=== PATIENT | female | born 2000 | race African-American/Black ===

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

== ENCOUNTER 2018-02-16 13:12 | Day surgery (SDC) | payer OTHER ==
[2018-02-16 13:46] VITALS: BMI 38.7
--- NOTE | 2018-02-16 15:04 | PDOC.LDHP ---
Labor and Delivery H&P Chief complaint: contractions HPI: 17 yo G1 at 37.4 by 9.5 week US here with complaint of contractions since 0700 today. She denies associated loss of fluid, vaginal bleeding, or decreased movement. This has been complicated by seizure disorder treated with Depakote during the first trimester, multiple treatments for Gonorrhea/ Chlamydia, anemia requiring Fe transfusion, and GBS+ status. Pt is being followed by MFM monthly. Current gestational age (weeks): 37 (37.4) Due date: 03/05/18 Dating criteria: first trimester ultrasound Grav: 1 Current complications: pregestational diabetes (Failed 1hr GTT, passed 3 hr), other (seizure disorder treated with Depakote, anemia, GC/C) Abnormal US findings: No Current medications: pre-jennifer vitamins, iron - Physical Exam Vital signs reviewed and normal: yes General: NAD Heart: RRR (with systolic murmur) Lungs: CTAB Abdomen: gravid Extremeties: trace edema FHT: category 1, variability present, absent or minimal variables [place] contractions every: 6-8 - Vaginal Exam cm dilated: 1 (per history, pt refused exam today) - OB Labs Blood type: B RH: positive Antibody Screen: negative HIV: negative RPR: negative HEPSAg: negative 1 hour GCT: positive 3 hour GTT: negative GBS: positive Urine drug screen: negative Rubella: immune - Assessment Term , not in active labor - Plan Plan: observation in L&D <Lyndon Jones - Last Filed: 02/16/18 15:29> <Bethany Aguilar - Last Filed: 02/16/18 17:19> Allergies/Adverse Reactions: Allergies Allergy/AdvReac Type Severity Reaction Status Date / Time No Known Allergies Allergy Verified 02/16/18 13:46 Attending Addendum - Attending Addendum Date/Time: 02/16/18 4867 I personally evaluated the patient and discussed the management with Dr. Jones I agree with the History, Examination, Assessment and Plan documented above with any addition or exceptions noted below. 17 yo at 37.4 wks presents for evaluation of labor. Patient sitting comfortably in bed with nonpainful intermittent contractions. Refusing vaginal exam. FHT reactive. Will monitor for 2 hours. Will attempt to repeat exam prior to d/c. Obtain LAMONTE Gc/CT of urine. Yassine <Bethany Aguilar - Last Filed: 02/16/18 17:19>
--- NOTE | 2018-02-16 15:33 | PDOC.LDPN ---
Labor & Delivery Progress Note - Subjective Subjective: comfortable - Objective Vital signs reviewed and normal: yes General: NAD Uterine fundus: non tender FHT: category 1 - Assessment (1) Third trimester Code(s): Z34.93 - ENCNTR FOR SUPRVSN OF NORMAL PREG, UNSP, THIRD TRIMESTER Status: Acute Comment: Pt has refused cervical exam, there are contractions on her strip however I am unable to determine if they are making change. Pt is requesting to be discharged (2) History of maternal gonorrhea, currently in third trimester Code(s): O09.893 - SUPERVISION OF OTHER HIGH RISK PREGNANCIES, THIRD TRIMESTER Status: Acute Comment: There is not LAMONTE on file, will order GC/C today <Lyndon Jones - Last Filed: 02/16/18 15:31> Attending Addendum - Attending Addendum Date/Time: 02/16/18 1720 I personally evaluated the patient and discussed the management with Dr. Jones I agree with the History, Examination, Assessment and Plan documented above with any addition or exceptions noted below. Refused 2nd vaginal exam. No change on pain or frequency of contractions. Remains pain free and comfortable. Ok for d/c to home. Precautions discussed. Has appointment with PCP later this week. Ct/GC collected and pending. Yassine <Bethany Aguilar - Last Filed: 02/16/18 17:22>
[2018-02-17] MEDS ORDERED: FLU VACC QS2017-18 36 mo. & older 0.5 ML SYRINGE IM ONE (09:00)
[2018-02-18 01:27] LABS: Chlamydia by PCR Not Detected (NotDetected); GC by PCR Not Detected (NotDetected)
== END 2018-02-16 15:25 | disposition home or self-care (01) ==
LOC: L&D/OP 13:12
PROVIDERS: ATTEND Family Medicine
DX: O47.1 False labor at or after 37 completed weeks of gestation (principal); O99.353 Diseases of the nervous system complicating pregnancy, third trimester; G40.909 Epilepsy, unspecified, not intractable, without status epilepticus; O24.313 Unspecified pre-existing diabetes mellitus in pregnancy, third trimester; O99.013 Anemia complicating pregnancy, third trimester; D64.9 Anemia, unspecified; Z3A.37 37 weeks gestation of pregnancy; Z79.899 Other long term (current) drug therapy
CPT/HCPCS: 87491; 87591; 99282

== ENCOUNTER 2018-02-20 03:42 | Inpatient (IN) | payer MEDICAID, OTHER ==
[2018-02-20 04:32] VITALS: BMI 36.3
--- NOTE | 2018-02-20 04:44 | PDOC.LDHP ---
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 She denies vaginal bleeding and decreased movement. Current gestational age (weeks): 38 (38.1) Due date: 03/05/17 Dating criteria: first trimester ultrasound (9.5) Grav: 1 Para: 0 OB History Details: Anemia of requiring iron transfusion Hx of 3 positive tests for chlamydia, with most recent LAMONTE on 02/16/2018 Hx of positive gonorrhea test, with LAMONTE 08/2018 Hx of seizure disorder on depakote in first trimester Prediabetes (hba1c 6.0) Current complications: other Abnormal US findings: No Past Medical History: Seizure d/o; pt was weaned off of depakote in first trimester Prediabetes Current medications: pre- vitamins, iron, other (folic acid) Previous surgical history: none Allergies/Adverse Reactions: Allergies Allergy/AdvReac Type Severity Reaction Status Date / Time No Known Allergies Allergy Verified 02/16/18 13:46 Social history: none - Physical Exam Vital signs reviewed and normal: yes General: NAD, breathing through contractions Heart: RRR Lungs: CTAB Abdomen: gravid Extremeties: no edema FHT: category 1 - Vaginal Exam cm dilated: 3 Effacement: 100% Station: -2 - OB Labs Blood type: B RH: positive Antibody Screen: negative HIV: negative RPR: negative HEPSAg: negative 3 hour GTT: negative GBS: positive Rubella: immune - Assessment L&D Assessment: term patient in labor 7 yo at 38.1 wks by 9.5 week US presents with contractions and loss of fluid since 0100. 1.)sIUP, Latent Labor with suspected SROM- we will admit to L&D. Order an amnisure. She desires an epidural. We will do serial labor checks every 2 hours to evaluate for change and provide continuous monitoring. We will order a cbc, type and screen. 2.)Possible new onset gestational hypertension-Pt has had 3 elevated blood pressures each about 15 minutes apart. However, she is in a lot of pain from her contractions. Nevertheless, we will evaluate her for PreEclampsia. We ordered a cbc, cmp, urine protein and creatinine, uric acid. 3.)GBS positive- we started her on PCN. 4.)Hx of seizures-She used to be on depakote for prophylaxis, which was weaned off in her first trimester. We will continue her on folate. 5.)Anemia of -she received an iron infusion in . We will monitor her H&H and continue PO iron. 6.)Hx of chlamydia infection X3 in s/p treatment each time- most recent LAMONTE on 02/16. We ordered a UA with gonorrhea and chlamydia testing. 7.)Hx of gonorrhea infection, s/p treatment and test of cure. We ordered a urine gonorrhea. - Plan Plan: admit to L&D
[2018-02-20 05:37] LABS: Amnisure Test RUPTURE DETECTED (No Rupture)
[2018-02-20 05:38] LABS: Amnisure Internal Control QC ACCEPTABLE (ACCEPTABLE)
[2018-02-20] MEDS ORDERED: Promethazine HCl 25 MG/ML VIAL IM PRN ×2 (05:53→11:20)
[2018-02-20] MEDS ORDERED: Ondansetron HCl/PF 4 MG/2 ML Vial IVP PRN ×3 (05:53→11:20)
[2018-02-20] MEDS: Lactated Ringer's 1,000 ML IV SCH ×3 (05:58→14:27)
[2018-02-20] MEDS ORDERED: LR / Pitocin 40 units/1000 ml 1,000 ML IV PRN (06:03)
[2018-02-20] MEDS ORDERED: Lidocaine 1% (PF) 30 ML VIAL SC PRN (06:03)
[2018-02-20] MEDS ORDERED: Ibuprofen 800 MG TAB PO PRN (06:03)
[2018-02-20] MEDS ORDERED: Penicillin G Potassium 5 MILL.UNITS in Sodium Chloride 0.9% 100 ML IVPB SCH (06:15)
[2018-02-20] MEDS ORDERED: DISCONTINUE ALL PREVIOUS NARCOTICS FS SCH (06:15)
[2018-02-20] MEDS ORDERED: Bupivacaine 0.5% 20 ML, Fentanyl 400 MCG in Sodium Chloride 0.9% 72 ML EPIDURAL SCH (06:15)
[2018-02-20 06:16] LABS: #Basophils 0.1 thou/uL (0.0-0.2); #Monocytes 0.5 thou/uL (0.11-0.59); #Neutrophils 7.5 thou/uL (1.40-6.50); %Basophils 0.6 % (0.0-1.0); %Eosinophils 0.3 % (0.0-10.0); %Lymphocytes 19.8 % (28.0-48.0); %Monocytes 5.2 % (0.0-4.0); Hemoglobin 11.5 g/dL (12.0-16.0); Mean Corpuscular HGB CONC 32.8 g/dL (32.0-36.0); Mean Corpuscular Hemoglobin 27.3 pg (25.0-35.0); Mean Corpuscular Volume 83.2 fl (77.0-87.0); Mean Platelet Volume 8.4 fL (7.4-10.4); Platelet Count 304 thou/uL (130-400); RBC Distribution Width 17.7 % (11.5-14.5); White Blood Cell (WBC) Count 10.1 thou/uL (4.8-10.8)
[2018-02-20 06:27] LABS: ALT (SGPT) 10 U/L (8-55); AST (SGOT) 24 U/L (5-30); Albumin 4.2 g/dL (3.5-5.0); Alkaline Phosphatase 186 U/L (40-150); Anion Gap 19 mmol/L (10-20); BUN (Urea Nitrogen) 10 mg/dL (8.4-21.0); Bilirubin, Total 0.3 mg/dL (0.2-1.2); Calc. Creatinine Clearance 164 mL/min (70-130); Calcium 10.4 mg/dL (7.8-10.44); Carbon Dioxide 19 mmol/L (22-29); Chloride 105 mmol/L (98-107); Estimated GFR-MDRD Greater than 90; Glucose 91 mg/dL (70-105); Protein, Total 8.2 g/dL (6.0-8.3); Sodium 139 mmol/L (136-145); Uric Acid 4.9 mg/dL (2.6-6.0)
[2018-02-20 06:44] LABS: Hep B Surf Ag Non-Reactive S/CO (NonReactive); Syphilis Antibody Nonreactive (Nonreactive); Syphilis Antibody Index 0.03 S/CO (<1.00 Non-Reactive)
[2018-02-20] MEDS ORDERED: PHENYLEPHRINE-NS 100 MCG/ML 10 ML SYRINGE ONE ×2 (07:17→11:11)
[2018-02-20] MEDS ORDERED: Lidocaine 1% PF 5 ML VIAL ONE (07:17)
[2018-02-20] MEDS ORDERED: Lidocaine 2% MPF 10 ML AMP (For Epidural Use) ONE ×2 (07:17→11:11)
[2018-02-20] MEDS ORDERED: Succinylcholine Chloride 20 MG/ML 10 ml SYRINGE FS ONE ×2 (07:17→11:11)
[2018-02-20] MEDS ORDERED: Propofol 200 MG/20 ML VIAL ONE ×2 (07:17→11:11)
[2018-02-20] MEDS ORDERED: Magnesium Sulfate 4 GM, Admixture Fee 1 EACH in Sodium Chloride 0.9% 250 ML 250 ML IVPB SCH (08:30)
[2018-02-20] MEDS: Magnesium Sulfate 20 gm/500 ml 20 GM/500 ML BAG IVPB SCH ×2 (08:40→16:54)
[2018-02-20 09:03] LABS: Bilirubin Negative (Negative); Blood, Urine Moderate (Negative); Clarity CLEAR (Clear); Glucose, Urine (Dipstick) Negative (Negative); Leukocyte Small (Negative); Nitrite Negative (Negative); Protein, Urine (Dipstick) Negative (Neg-Trace); Urobilinogen 0.2 mg/dL (0.2-1.0)
[2018-02-20 09:05] LABS: Bacteria/HPF None Seen HPF (None Seen); Hyaline Casts/LPF 4-6 HYALINE CAST LPF (0-3 Hyaline); Pathc Cast-AUWi Flag 1.74 (0-2.49); WBC/HPF 0-3 HPF (0-3)
[2018-02-20] MEDS ORDERED: Calcium Gluc 4.6 MEQ/10 ML (100 MG/ML) SLOW IVP PRN (09:15)
[2018-02-20] MEDS: Labetalol HCl 100 MG/20 ML VIAL ONE ×2 (09:17→10:12)
[2018-02-20 09:19] LABS: Renal Epithelial None Seen HPF (0-3); Transitional Epithelial 0-3 HPF (0-3)
[2018-02-20] MEDS: Penicillin G 2.5 MILL.units 2.5 MILL.UNITS in Premix Bag 1 BAG IVPB SCH (10:12)
[2018-02-20] MEDS: Prenatal Vitamin 1 TAB PO SCH (10:13)
[2018-02-20 10:24] LABS: Amphetamine Not Detected (NotDetected); Barbiturates Screen Not Detected (NotDetected); Benzodiazepine Screen Not Detected (NotDetected); Cocaine Metabolite Screen Not Detected (NotDetected); Medtox Control Line Valid? VALID (VALID); Medtox Reader # READER 1; Methadone Not Detected (NotDetected); Methamphetamine Not Detected (NotDetected); Opiate Screen Not Detected (NotDetected); Oxycodone Screen Not Detected (NotDetected); Phencyclidine (PCP) Not Detected (NotDetected); THC/Cannabinoid Screen Not Detected (NotDetected); Tricyclic Screen Not Detected (NotDetected)
[2018-02-20] MEDS ORDERED: Labetalol HCl 100 MG/20 ML VIAL SLOW IVP SCH ×4 (10:45→13:15)
--- NOTE | 2018-02-20 10:45 | PDOC.LDPN ---
Labor & Delivery Progress Note - Subjective Subjective: comfortable - Objective Abnormal vital signs: Continued severe range HTN BP 160s/90s General: NAD Uterine fundus: non tender Dilation: 9 Effacement: 100% Station: 0 FHT: category 1, variability present, absent or minimal variables [place] contractions every: 2 FSE placed: yes Resuscitative measures: maternal oxygen, maternal position change - Assessment (1) Preeclampsia, severe Code(s): O14.10 - SEVERE PRE-ECLAMPSIA, UNSPECIFIED TRIMESTER Current Visit: Yes Status: Acute QualifierTitle: Trimester: third trimester Qualified Code(s): O14.13 - Severe pre-eclampsia, third trimester Comment: Pt has no prior history of elevetated BP, however upon presentation multiple elevated BPs were recorded. Pt admits to associated headache. Pre eclampsia labs are pending. Mg has been started. Control BP with prn Labetalol. Mg checks q1. (2) PROM (premature rupture of membranes) Code(s): O42.90 - AMISHA ROM, 7TH0 BETW RUPT & ONST LABR, UNSP WEEKS OF GEST Current Visit: Yes Status: Acute QualifierTitle: PROM onset of labor timing: onset of labor within 24 hours of rupture PROM gestational age: full term Qualified Code(s): O42.02 - Full- term premature rupture of membranes, onset of labor within 24 hours of rupture Comment: at 1100 a prolonged deceleration was noted into the 70s. Heart rate was unresponsive to scalp stimulation, maternal position change, and O2. Stat was called. (3) History of maternal gonorrhea, currently in third trimester Code(s): O09.893 - SUPERVISION OF OTHER HIGH RISK PREGNANCIES, THIRD TRIMESTER Current Visit: No Status: Acute Comment: LAMONTE on 02/16 (4) Third trimester Code(s): Z34.93 - ENCNTR FOR SUPRVSN OF NORMAL PREG, UNSP, THIRD TRIMESTER Current Visit: No Status: Acute Comment: PROM, continue induction as above -: Stat c section as above <Lyndon Jones - Last Filed: 02/20/18 11:24> Attending Addendum - Attending Addendum Date/Time: 02/20/18 1801 I personally evaluated the patient and discussed the management with Dr. Jones I agree with the History, Examination, Assessment and Plan documented above with any addition or exceptions noted below. 17 yo female at 38.1 wks by 9.5 wk sono admitted for active labor. Patient has been laboring without augmentation. Earlier this morning noted to have bradycardia down to 90s for 6 minutes. Recovered. Change quickly from 3 cm to 8 cm. FSE and IUPC placed at that time. Epidural for pain control but not adequately controlling all pain. Again bradycardia down to 60s x 5 minutes without improvement. STAT section called due to NRFHT with concern for placenta abruption. 1. sIUP 2. Preeclampsia with severe features on mag with persistent elevated blood pressure 3. Recurrent STIs in 4. Iron def anemia 5. GBS pos 6. hx of childhood seizure d/o (last seizure 8 years ago) Yassine <Bethany Aguilar - Last Filed: 02/20/18 18:07>
[2018-02-20] MEDS ORDERED: Lidocaine 2% 10 ML INJ ONE (11:02)
[2018-02-20] MEDS ORDERED: Oxytocin 10 UNITS/ML VIAL ONE ×2 (11:04→11:11)
[2018-02-20] MEDS ORDERED: CEFAZOLIN/Water 2 GM/20 ML SYRINGE ONE (11:05)
[2018-02-20] MEDS ORDERED: Morphine PF 1 MG/ML SYR ONE (11:08)
[2018-02-20] MEDS ORDERED: Bupivacaine 0.25% HCL 30 ML VIAL ONE (11:11)
[2018-02-20] MEDS ORDERED: Naloxone HCl 0.4 mg/ml Vial IV PRN (11:20)
[2018-02-20] MEDS ORDERED: Ketorolac Tromethamine 30 MG/ML VIAL IVP PRN (11:20)
[2018-02-20] MEDS ORDERED: Promethazine HCl 25 MG SUPP PR PRN (11:20)
[2018-02-20] MEDS ORDERED: Naloxone HCl 0.4 mg/ml Vial IVP PRN ×2 (11:20)
[2018-02-20] MEDS ORDERED: diphenhydrAMINE 50 MG/ML VIAL IVP PRN (11:20)
[2018-02-20] MEDS ORDERED: Eucerin (Mineral Oil/Petrolatum,White) 30 gm Jar TOP PRN (11:20)
[2018-02-20] MEDS ORDERED: Meperidine HCl/PF 25 MG/ML VIAL SLOW IVP PRN (11:20)
[2018-02-20 11:28] LABS: Actual Bicarbonate (HCO3a) 22.1 mEq/L (22-26); Base Excess (BEa) -4.8 mEq/L (0 (+/-) 2.5)
[2018-02-20] MEDS ORDERED: Adacel (T-DAP) 0.5 ML VIAL IM ONE (11:30)
[2018-02-20] MEDS ORDERED: Ketorolac Tromethamine 30 MG/ML VIAL IVP SCH (11:30)
[2018-02-20] MEDS ORDERED: Communication Order-Pharmacy FS SCH (11:30)
[2018-02-20] MEDS ORDERED: Calcium Gluconate 4.6 MEQ in Sodium Chloride 0.9% 100 ML IVPB PRN (11:30)
[2018-02-20] MEDS ORDERED: diphenhydrAMINE 25 MG CAP PO PRN (11:30)
[2018-02-20] MEDS ORDERED: HYDROcodone/Acetaminophen 5/325 mg Tablet PO PRN (11:30)
--- NOTE | 2018-02-20 12:59 | RAD ---
ONE VIEW ABDOMEN: HISTORY: Evaluate for foreign body. Post surgical exam. COMPARISON: None. FINDINGS: A portable one view abdomen demonstrates a radiopaque halo projecting over the pelvis. No obvious ra diopaque foreign bodies. The bowel gas pattern is nonspecific. IMPRESSION: Limited evaluation. No obvious radiopaque foreign body. POS: [facility]
[2018-02-20] MEDS ORDERED: hydrALAZINE 20 MG/ML VIAL SLOW IVP SCH (13:15)
--- NOTE | 2018-02-20 13:21 | PDOC.PP ---
Post Progress Note Post Day #: 0 Subjective: s/p stat for non-reassuring heart tones, in recovery in L&D, intubated in surgery. She endorses current headache, feeling nauseous and having some throat pain. She can feel her legs, moving legs. Appetite good, asking for food, told she could have ice chips for now. PO intake tolerated: no Flatus: no Ambulation: no Vital Signs (12 hours) Temp Pulse Resp BP Pulse Ox 02/20/18 10:12 99 163/101 H 02/20/18 09:31 98.6 F 93 14 100 02/20/18 09:17 93 168/97 H 02/20/18 06:00 98 F 75 20 Weight Weight 81.647 kg - Physical Examination General: NAD Cardiovascular: no m/r/g, RRR Respiratory: clear to auscultation bilaterally, non-labored breathing Skin: CS incision dry & intact Deviation from normal: no LE edema Neurological: no gross focal deficits Deviation from normal: 2+ reflexes LLE, 1+ reflex RLE Psychiatric: A&Ox3, normal affect Result Diagrams: 02/20/18 06:06 02/20/18 06:06 Additional Labs: Post Labs Blood Type B POSITIVE 02/20/18 06:06 Hep Bs Antigen Non-Reactive S/CO (NonReactive) 02/20/18 06:06 (1) Status post Code(s): Z98.891 - HISTORY OF UTERINE SCAR FROM PREVIOUS SURGERY Status: Acute Comment: s/p stat 2/2 to bradycardia, in recovery, has been extubated. Continue to monitor UO (2) Preeclampsia, severe Code(s): O14.10 - SEVERE PRE-ECLAMPSIA, UNSPECIFIED TRIMESTER Status: Acute QualifierTitle: Trimester: third trimester Qualified Code(s): O14.13 - Severe pre-eclampsia, third trimester Comment: Pt has no prior history of elevetated BP, however upon presentation multiple elevated BPs were recorded. Pt admits to associated headache. Pre eclampsia labs are pending. Mg loading dose administered, now of 2g/hr, will plan to be on for 24 hrs. Mag checks q 2 hr. Has been given 60 mg of labetalol and 1 dose of hydralazine (3) Positive GBS test Code(s): B95.1 - STREPTOCOCCUS, GROUP B, CAUSING DISEASES CLASSD ELSWHR Status : Acute Comment: Will stay for 48 hr for monitoring for signs of GBS infection for <Sena Vera - Last Filed: 02/20/18 13:54> Vital Signs (12 hours) Temp Pulse Resp BP Pulse Ox 02/20/18 16:07 100 140/78 02/20/18 14:33 99 163/101 H 02/20/18 13:22 95 174/122 H 02/20/18 10:12 99 163/101 H 02/20/18 09:31 98.6 F 93 14 100 02/20/18 09:17 93 168/97 H Weight Weight 81.647 kg Result Diagrams: 02/20/18 06:06 02/20/18 06:06 Additional Labs: Post Labs Blood Type B POSITIVE 02/20/18 06:06 Hep Bs Antigen Non-Reactive S/CO (NonReactive) 02/20/18 06:06 <Bethany Aguilar - Last Filed: 02/20/18 18:15> Attending Addendum - Attending Addendum Date/Time: 02/20/18 180 I personally evaluated the patient and discussed the management with Dr. Vera I agree with the History, Examination, Assessment and Plan documented above with any addition or exceptions noted below. 17 yo now female s/p STAT PLTCS on 02/20/18 at 38.1 wks due to severe unresolving bradycardia due to suspected placenta abruption. POD/PPD#0 1. s/p STAT PLTCS: Hysterotomy closed in 2 layers. Bilateral extensions, however not extending into cervix. Continue routine postop care. Has received 2 doses of Ancef due to infection risk and due to laboring (and hx of recurrent STIs) Azithromycin added. 2. Preeclampsia with severe features on mag: Started on oral Labetolol. BPs have improved. Continue mag sulfate for at least 24 hours after delivery. No s/ sx of mag tox at present. Continue to monitor. Will need ASA ppx with future pregnancies. No NSAIDs for pain control. 3. Recurrent STIs in : LAMONTE neg this week. PPX for infant. 4. Iron def anemia: Continue supplemental iron. 5. GBS pos: Received PCN x 4 hours. 6. hx of childhood seizure d/o (last seizure 8 years ago): Monitor Yassine <Bethany Aguilar - Last Filed: 02/20/18 18:15>
[2018-02-20] MEDS ORDERED: Azithromycin 1,000 MG in Sodium Chloride 0.9% 500 ML IVPB ONE (14:27)
[2018-02-20] MEDS ORDERED: CEFAZOLIN 1 GM in Sodium Chloride 0.9% 100 ML IVPB SCH (14:30)
[2018-02-20] MEDS ORDERED: Labetalol 100 MG TAB PO SCH ×2 (15:45→21:00)
--- NOTE | 2018-02-20 17:47 | PDOC.PP ---
Post Progress Note Post Day #: 0 Subjective: Pt is sleepy, but doing well, answers all questions appropriately, follows commands, denies pain, headaches, vision changes PO intake tolerated: no Flatus: no Ambulation: no Vital Signs (12 hours) Temp Pulse Resp BP Pulse Ox 02/20/18 16:07 100 140/78 02/20/18 14:33 99 163/101 H 02/20/18 13:22 95 174/122 H 02/20/18 10:12 99 163/101 H 02/20/18 09:31 98.6 F 93 14 100 02/20/18 09:17 93 168/97 H 02/20/18 06:00 98 F 75 20 Weight Weight 81.647 kg - Physical Examination General: NAD Cardiovascular: no m/r/g, RRR Respiratory: clear to auscultation bilaterally, non-labored breathing Abdominal: + bowel sounds Skin: CS incision dry & intact Deviation from normal: LLE 1+, RLE-1 Psychiatric: A&Ox3, normal affect Result Diagrams: 02/20/18 06:06 02/20/18 06:06 Additional Labs: Post Labs Blood Type B POSITIVE 02/20/18 06:06 Hep Bs Antigen Non-Reactive S/CO (NonReactive) 02/20/18 06:06 (1) Status post Code(s): Z98.891 - HISTORY OF UTERINE SCAR FROM PREVIOUS SURGERY Status: Acute Comment: s/p stat 2/2 to bradycardia, back on L&D, Continue to monitor UO (2) Preeclampsia, severe Code(s): O14.10 - SEVERE PRE-ECLAMPSIA, UNSPECIFIED TRIMESTER Status: Acute QualifierTitle: Trimester: third trimester Qualified Code(s): O14.13 - Severe pre-eclampsia, third trimester Comment: Pt has no prior history of elevetated BP, however upon presentation multiple elevated BPs were recorded. Pt admits to associated headache. Pre eclampsia labs are pending. Mg loading dose administered, now of 2g/hr, will plan to be on for 24 hrs. Mag checks q 4 hr. Has been given 60 mg of labetalol and 1 dose of hydralazine. Started on oral labetalol. Pressures are much improved last several in 130s. (3) Positive GBS test Code(s): B95.1 - STREPTOCOCCUS, GROUP B, CAUSING DISEASES CLASSD ELSWHR Status : Acute Comment: Will stay for 48 hr for monitoring for signs of GBS infection for <Sena Vera - Last Filed: 02/20/18 17:45> Vital Signs (12 hours) Temp Pulse Resp BP Pulse Ox 02/20/18 16:07 100 140/78 02/20/18 14:33 99 163/101 H 02/20/18 13:22 95 174/122 H 02/20/18 10:12 99 163/101 H 02/20/18 09:31 98.6 F 93 14 100 02/20/18 09:17 93 168/97 H Weight Weight 81.647 kg Result Diagrams: 02/20/18 06:06 02/20/18 06:06 Additional Labs: Post Labs Blood Type B POSITIVE 02/20/18 06:06 Hep Bs Antigen Non-Reactive S/CO (NonReactive) 02/20/18 06:06 <Bethany Aguilar - Last Filed: 02/20/18 18:25> Attending Addendum - Attending Addendum Date/Time: 02/20/181823 I personally evaluated the patient and discussed the management with Dr. Vera I agree with the History, Examination, Assessment and Plan documented above with any addition or exceptions noted below. 17 yo now female s/p STAT PLTCS on 02/20/18 at 38.1 wks due to severe unresolving bradycardia due to suspected placenta abruption. POD/PPD#0 1. s/p STAT PLTCS: Hysterotomy closed in 2 layers. Bilateral extensions, however not extending into cervix. Continue routine postop care. Has received 2 doses of Ancef due to infection risk and due to laboring (and hx of recurrent STIs) Azithromycin added. 2. Preeclampsia with severe features on mag: Started on oral Labetolol. BPs have improved. Continue mag sulfate for at least 24 hours after delivery. No s/ sx of mag tox at present. Continue to monitor q 4 hours. Will need ASA ppx with future pregnancies. No NSAIDs for pain control. 3. Recurrent STIs in : LAMONTE neg this week. PPX for . 4. Iron def anemia: Continue supplemental iron. 5. GBS pos: Received PCN x 4 hours. 6. hx of childhood seizure d/o (last seizure 8 years ago): Monitor Yassine <Betahny Aguilar - Last Filed: 02/20/18 18:25>
[2018-02-20] MEDS ORDERED: Acetaminophen 325 MG TAB PO PRN (20:44)
[2018-02-20] MEDS: Labetalol 100 MG TAB PO SCH (22:06)
[2018-02-20 22:07] LABS: GC by PCR Not Detected (NotDetected)
--- NOTE | 2018-02-20 22:07 | PDOC.PP ---
Post Progress Note Post Day #: 0 Subjective: 17 yo [id number] @ 38.1 wks by a 9.5 wk sono with pmhx of seizure disorder admitted for latent labor and SROM, admitted, found to have PreE with severe features, placed on magnesium, now s/p primary LTCS 2/2 persistent bradycardia; also GBS positive. Denies any headaches or vision changes, has adequate urine output. Requesting something to eat for dinner. She is sleepy but answer questions appropriately. Flatus: no Ambulation: no Vital Signs (12 hours) Temp Pulse Resp BP BP 02/20/18 19:00 98.4 F 106 H 18 129/69 02/20/18 16:07 100 140/78 02/20/18 15:28 98.5 F 108 H 16 02/20/18 14:33 99 163/101 H 02/20/18 13:22 95 174/122 H 02/20/18 10:12 99 163/101 H Weight Weight 81.647 kg - Physical Examination General: NAD Cardiovascular: no m/r/g, RRR Respiratory: clear to auscultation bilaterally, non-labored breathing Abdominal: lochia (minimal), appropriately TTP Neurological: no gross focal deficits (adequate UOP; hyporeflexive patellar reflex; a&ox3) Psychiatric: A&Ox3 Result Diagrams: 02/20/18 06:06 02/20/18 06:06 Additional Labs: Post Labs Blood Type B POSITIVE 02/20/18 06:06 Hep Bs Antigen Non-Reactive S/CO (NonReactive) 02/20/18 06:06 (1) Preeclampsia, severe Code(s): O14.10 - SEVERE PRE-ECLAMPSIA, UNSPECIFIED TRIMESTER Status: Acute QualifierTitle: Trimester: third trimester Qualified Code(s): O14.13 - Severe pre-eclampsia, third trimester (2) Positive GBS test Code(s): B95.1 - STREPTOCOCCUS, GROUP B, CAUSING DISEASES CLASSD ELSWHR Status : Acute Comment: Will stay for 48 hr for monitoring for signs of GBS infection for (3) Status post Code(s): Z98.891 - HISTORY OF UTERINE SCAR FROM PREVIOUS SURGERY Status: Acute Comment: s/p stat 2/2 to bradycardia, back on L&D, Continue to monitor UO (4) History of maternal gonorrhea, currently in third trimester Code(s): O09.893 - SUPERVISION OF OTHER HIGH RISK PREGNANCIES, THIRD TRIMESTER Status: Acute Comment: LAMONTE on 02/16 (5) History of maternal Chlamydia infection, currently in third trimester Code(s): O09.293 - SUPRVSN OF PREG W POOR REPRODCTV OR OBSTET HX, THIRD TRI Status: Acute - Assessment/Plan 17 yo [id number] s/p primary LTCS @ 38.1 wks by a 5wk us 2/2 persistent bradycardia and mom found to have severe preE. 1.)Term , delivered. S/p primary LTCS 2/2 bradycardia; Endorses that her pain is controlled and has minimal bleeding. We will continue pain meds prn. 2.)PreE with severe features-bp's have been in the 120-130s range this evening. She is currently on Labetalol 20mg BID. We will continue to monitor her bp's and continue magnesium. We will also continue magnesium checks q4h; hyporeflexive as before; adequate urine output. No complaint of headache or vision changes. Sleepy but arousable and answerring questions appropriately. 3.)Seizure d/o- on depakote in past, weaned off in first trimester. 4.)Hx of chlamydia infections, most recent LAMONTE on 02/16 in [facility]. 5.)Hx of gonorrhea infection, LAMONTE in 08/2017 (from clinic notes) and LAMONTE 02/16 in [facility] <Meghan Dallas - Last Filed: 02/20/18 22:15> Vital Signs (12 hours) Temp Pulse Resp BP BP 02/21/18 08:56 99 130/72 02/21/18 08:15 98.0 F 99 18 02/21/18 07:00 98.0 F 99 18 130/72 02/21/18 04:00 98.4 F 95 18 02/21/18 00:00 98.6 F 95 18 Weight Weight 81.647 kg Result Diagrams: 02/21/18 04:34 02/21/18 04:34 Additional Labs: Post Labs Blood Type B POSITIVE 02/20/18 06:06 Hep Bs Antigen Non-Reactive S/CO (NonReactive) 02/20/18 06:06 <Bethany Aguilar - Last Filed: 02/21/18 11:54> Attending Addendum - Attending Addendum Date/Time: 02/21/18 3403 I personally discussed the management with Dr. Dallas I agree with the History, Examination, Assessment and Plan documented above with any addition or exceptions noted below. 17 yo now female s/p STAT PLTCS on 02/20/18 at 38.1 wks due to severe unresolving bradycardia due to suspected placenta abruption. POD/PPD#0 1. s/p STAT PLTCS: Hysterotomy closed in 2 layers. Bilateral extensions, however not extending into cervix. Continue routine postop care. Has received 2 doses of Ancef due to infection risk and due to laboring (and hx of recurrent STIs) Azithromycin added. 2. Preeclampsia with severe features on mag: Started on oral Labetolol. BPs have improved. Continue mag sulfate for at least 24 hours after delivery. No s/ sx of mag tox at present. Continue to monitor q 4 hours. Will need ASA ppx with future pregnancies. No NSAIDs for pain control. 3. Recurrent STIs in : LAMONTE neg this week. PPX for infant. 4. Iron def anemia: Continue supplemental iron. 5. GBS pos: Received PCN x 4 hours. 6. hx of childhood seizure d/o (last seizure 8 years ago): Monitor ABrayMD <Bethany Aguilar - Last Filed: 02/21/18 11:54>
[2018-02-21] MEDS: Magnesium Sulfate 20 gm/500 ml 20 GM/500 ML BAG IVPB SCH (02:50)
--- NOTE | 2018-02-21 03:23 | PDOC.PP ---
Post Progress Note Post Day #: 1 Subjective: Endorses intermittant headache. She just took some tylenol however and feels better. Otherwise no complaints. More alert and responsive than four hours ago. PO intake tolerated: no Flatus: no Ambulation: no Vital Signs (12 hours) Temp Pulse Resp BP BP 02/20/18 22:06 95 120/64 02/20/18 19:30 98.4 F 106 H 18 02/20/18 19:00 98.4 F 106 H 18 129/69 02/20/18 16:07 100 140/78 02/20/18 15:28 98.5 F 108 H 16 Weight Weight 81.647 kg - Physical Examination General: NAD Cardiovascular: no m/r/g, RRR Respiratory: clear to auscultation bilaterally, non-labored breathing Abdominal: no distention, appropriately TTP Neurological: no gross focal deficits (normal reflexes) Psychiatric: A&Ox3, normal affect Result Diagrams: 02/20/18 06:06 02/20/18 06:06 Additional Labs: Post Labs Blood Type B POSITIVE 02/20/18 06:06 Hep Bs Antigen Non-Reactive S/CO (NonReactive) 02/20/18 06:06 (1) Preeclampsia, severe Code(s): O14.10 - SEVERE PRE-ECLAMPSIA, UNSPECIFIED TRIMESTER Status: Acute QualifierTitle: Trimester: third trimester Qualified Code(s): O14.13 - Severe pre-eclampsia, third trimester Comment: Pt's bp's have been controlled in the 120s systolic. She endorses intermittant headaches improved with tylenol. UOP has been adequate. No signs of mg toxicity. Will recheck pt in four hours. (2) Positive GBS test Code(s): B95.1 - STREPTOCOCCUS, GROUP B, CAUSING DISEASES CLASSD ELSWHR Status : Acute Comment: Will stay for 48 hr for monitoring for signs of GBS infection for (3) Status post Code(s): Z98.891 - HISTORY OF UTERINE SCAR FROM PREVIOUS SURGERY Status: Acute Comment: s/p stat 2/2 to bradycardia, back on L&D, Continue to monitor UO (4) History of maternal gonorrhea, currently in third trimester Code(s): O09.893 - SUPERVISION OF OTHER HIGH RISK PREGNANCIES, THIRD TRIMESTER Status: Acute Comment: LAMONTE on 02/16 (5) History of maternal Chlamydia infection, currently in third trimester Code(s): O09.293 - SUPRVSN OF PREG W POOR REPRODCTV OR OBSTET HX, THIRD TRI Status: Acute Comment: LAMONTE 02/16 <Meghan Dallas - Last Filed: 02/21/18 03:21> Vital Signs (12 hours) Temp Pulse Resp BP BP 02/21/18 08:56 99 130/72 02/21/18 08:15 98.0 F 99 18 02/21/18 07:00 98.0 F 99 18 130/72 02/21/18 04:00 98.4 F 95 18 02/21/18 00:00 98.6 F 95 18 Weight Weight 81.647 kg Result Diagrams: 02/21/18 04:34 02/21/18 04:34 Additional Labs: Post Labs Blood Type B POSITIVE 02/20/18 06:06 Hep Bs Antigen Non-Reactive S/CO (NonReactive) 02/20/18 06:06 <Bethany Aguilar - Last Filed: 02/21/18 11:55> Attending Addendum - Attending Addendum Date/Time: 02/21/18 1155 I personally discussed the management with Dr. Dallas I agree with the History, Examination, Assessment and Plan documented above with any addition or exceptions noted below. 17 yo now female s/p STAT PLTCS on 02/20/18 at 38.1 wks due to severe unresolving bradycardia due to suspected placenta abruption. POD/PPD#1 1. s/p STAT PLTCS: Hysterotomy closed in 2 layers. Bilateral extensions, however not extending into cervix. Continue routine postop care. Has received 2 doses of Ancef due to infection risk and due to laboring (and hx of recurrent STIs) Azithromycin added. 2. Preeclampsia with severe features on mag: Started on oral Labetolol. BPs have improved. Continue mag sulfate for at least 24 hours after delivery. No s/ sx of mag tox at present. Continue to monitor q 4 hours. Will need ASA ppx with future pregnancies. No NSAIDs for pain control. 3. Recurrent STIs in : LAMONTE neg this week. PPX for . 4. Iron def anemia: Continue supplemental iron. 5. GBS pos: Received PCN x 4 hours. 6. hx of childhood seizure d/o (last seizure 8 years ago): Monitor ABrayMD <Bethany Aguilar - Last Filed: 02/21/18 11:55>
[2018-02-21] MEDS: Lactated Ringer's 1,000 ML IV SCH (04:41)
[2018-02-21 05:36] LABS: #Lymphocytes 1.9 thou/uL (1.20-3.40); #Monocytes 0.9 thou/uL (0.11-0.59); #Neutrophils 8.6 thou/uL (1.40-6.50); %Basophils 0.4 % (0.0-1.0); %Eosinophils 0.3 % (0.0-10.0); %Lymphocytes 16.2 % (28.0-48.0); %Neutrophils 75.2 % (31.0-61.0); Hemoglobin 9.1 g/dL (12.0-16.0); Mean Corpuscular HGB CONC 32.4 g/dL (32.0-36.0); Mean Corpuscular Hemoglobin 27.3 pg (25.0-35.0); Mean Corpuscular Volume 84.5 fl (77.0-87.0); Mean Platelet Volume 8.6 fL (7.4-10.4); Platelet Count 252 thou/uL (130-400); RBC Distribution Width 18.3 % (11.5-14.5); Red Blood Cell (RBC) Count 3.33 mill/uL (4.00-5.20); White Blood Cell (WBC) Count 11.5 thou/uL (4.8-10.8)
[2018-02-21 05:56] LABS: ALT (SGPT) 8 U/L (8-55); AST (SGOT) 23 U/L (5-30); Albumin 2.8 g/dL (3.5-5.0); Alkaline Phosphatase 117 U/L (40-150); Anion Gap 13 mmol/L (10-20); BUN (Urea Nitrogen) 8 mg/dL (8.4-21.0); Bilirubin, Total 0.4 mg/dL (0.2-1.2); Calc. Creatinine Clearance 182 mL/min (70-130); Calcium 7.5 mg/dL (7.8-10.44); Carbon Dioxide 20 mmol/L (22-29); Chloride 106 mmol/L (98-107); Estimated GFR-MDRD Greater than 90; Glucose 87 mg/dL (70-105); Potassium 4.3 mmol/L (3.5-5.1); Protein, Total 5.8 g/dL (6.0-8.3); Sodium 135 mmol/L (136-145)
[2018-02-21] MEDS: Folic Acid 1 MG TAB PO SCH ×4 (05:56→13:54)
--- NOTE | 2018-02-21 06:33 | PDOC.PP ---
Post Progress Note Post Day #: 1 Subjective: She denies any complaints. Sleeping well. A&Ox3. Adequate UOP. PO intake tolerated: no Flatus: no Ambulation: no Vital Signs (12 hours) Temp Pulse Resp BP BP 02/21/18 04:00 98.4 F 95 18 02/21/18 00:00 98.6 F 95 18 02/20/18 22:06 95 120/64 02/20/18 19:30 98.4 F 106 H 18 02/20/18 19:00 98.4 F 106 H 18 129/69 Weight Weight 81.647 kg - Physical Examination General: NAD Cardiovascular: no m/r/g, RRR Respiratory: clear to auscultation bilaterally, non-labored breathing Abdominal: lochia (minimal), appropriately TTP Neurological: no gross focal deficits (hyporeflexive on the right patellar reflex; left patellar reflex-2+; adequate UOP) Psychiatric: A&Ox3, normal affect Result Diagrams: 02/21/18 04:34 02/21/18 04:34 Additional Labs: Post Labs Blood Type B POSITIVE 02/20/18 06:06 Hep Bs Antigen Non-Reactive S/CO (NonReactive) 02/20/18 06:06 (1) Preeclampsia, severe Code(s): O14.10 - SEVERE PRE-ECLAMPSIA, UNSPECIFIED TRIMESTER Status: Acute QualifierTitle: Trimester: third trimester Qualified Code(s): O14.13 - Severe pre-eclampsia, third trimester Comment: Pt's bp's have been controlled in the 120-130s systolic. She denies any complaints. UOP has been adequate. No signs of mg toxicity. Will recheck pt in four hours. (2) Positive GBS test Code(s): B95.1 - STREPTOCOCCUS, GROUP B, CAUSING DISEASES CLASSD ELSWHR Status : Acute Comment: Will stay for 48 hr for monitoring for signs of GBS infection for (3) Status post Code(s): Z98.891 - HISTORY OF UTERINE SCAR FROM PREVIOUS SURGERY Status: Acute Comment: s/p stat 2/2 to bradycardia, back on L&D, Continue to monitor UO (4) History of maternal gonorrhea, currently in third trimester Code(s): O09.893 - SUPERVISION OF OTHER HIGH RISK PREGNANCIES, THIRD TRIMESTER Status: Acute Comment: LAMONTE on 02/16 (5) History of maternal Chlamydia infection, currently in third trimester Code(s): O09.293 - SUPRVSN OF PREG W POOR REPRODCTV OR OBSTET HX, THIRD TRI Status: Acute Comment: LAMONTE 02/16 <Meghan Dallas - Last Filed: 02/21/18 06:33> Vital Signs (12 hours) Temp Pulse Resp BP BP 02/21/18 08:56 99 130/72 02/21/18 08:15 98.0 F 99 18 02/21/18 07:00 98.0 F 99 18 130/72 02/21/18 04:00 98.4 F 95 18 02/21/18 00:00 98.6 F 95 18 Weight Weight 81.647 kg Result Diagrams: 02/21/18 04:34 02/21/18 04:34 Additional Labs: Post Labs Blood Type B POSITIVE 02/20/18 06:06 Hep Bs Antigen Non-Reactive S/CO (NonReactive) 02/20/18 06:06 <Bethany Aguilar - Last Filed: 02/21/18 11:55> Attending Addendum - Attending Addendum Date/Time: 02/21/18 1155 I personally discussed the management with Dr. Dallas I agree with the History, Examination, Assessment and Plan documented above with any addition or exceptions noted below. 17 yo now female s/p STAT PLTCS on 02/20/18 at 38.1 wks due to severe unresolving bradycardia due to suspected placenta abruption. POD/PPD#1 1. s/p STAT PLTCS: Hysterotomy closed in 2 layers. Bilateral extensions, however not extending into cervix. Continue routine postop care. Has received 2 doses of Ancef due to infection risk and due to laboring (and hx of recurrent STIs) Azithromycin added. 2. Preeclampsia with severe features on mag: Started on oral Labetolol. BPs have improved. Continue mag sulfate for at least 24 hours after delivery. No s/ sx of mag tox at present. Continue to monitor q 4 hours. Will need ASA ppx with future pregnancies. No NSAIDs for pain control. 3. Recurrent STIs in : LAMONTE neg this week. PPX for infant. 4. Iron def anemia: Continue supplemental iron. 5. GBS pos: Received PCN x 4 hours. 6. hx of childhood seizure d/o (last seizure 8 years ago): Monitor Yassine <Bethany Aguilar - Last Filed: 02/21/18 11:55>
--- NOTE | 2018-02-21 08:18 | PDOC.PP ---
Post Progress Note Post Day #: 1 Subjective: Patient reports she is doing well overall. Has a mild headache and is sore from her surgery but states her pain is well controlled with meds. Denies visual disturbance, chest pain, dyspnea, nausea, vomiting. Flatus: yes Ambulation: no (Currently on bedrest while on mag) Vital Signs (12 hours) Temp Pulse Resp BP 02/21/18 04:00 98.4 F 95 18 02/21/18 00:00 98.6 F 95 18 02/20/18 22:06 95 120/64 Weight Weight 81.647 kg - Physical Examination General: NAD Cardiovascular: no m/r/g, RRR Respiratory: clear to auscultation bilaterally, non-labored breathing Abdominal: + bowel sounds, lochia, no distention, appropriately TTP Fundus firm & at: umbilicus Extremities: negative homans (B) Skin: CS incision dry & intact, no rash Neurological: no gross focal deficits Psychiatric: A&Ox3, normal affect Result Diagrams: 02/21/18 04:34 02/21/18 04:34 Additional Labs: Post Labs Blood Type B POSITIVE 02/20/18 06:06 Hep Bs Antigen Non-Reactive S/CO (NonReactive) 02/20/18 06:06 (1) Pre-eclampsia, severe, delivered Code(s): O14.10 - SEVERE PRE-ECLAMPSIA, UNSPECIFIED TRIMESTER Status: Acute Comment: No elevated blood pressures overnight. UOP approximately 70 ml/hr since delivery. No symptoms of mag toxicity at this time. Patellar tendon reflexes 2+/4. Will have been on mag for 24 hours at approximately 11 :30 a.m. Resident team will cotninue to monitor closely and reevaluate (2) Status post Code(s): Z98.891 - HISTORY OF UTERINE SCAR FROM PREVIOUS SURGERY Status: Acute Comment: S/P stat for bradycardia. Now doing well on L& D. Pain well controlled. Continue to monitor closely (3) Iron deficiency anemia Code(s): D50.9 - IRON DEFICIENCY ANEMIA, UNSPECIFIED Status: Acute Comment: Patient with pre-existing iron deficiency anemia and probable component of blood loss anemia. Will continue to monitor hemoglobin and for signs of continued blood loss. (4) Positive GBS test Code(s): B95.1 - STREPTOCOCCUS, GROUP B, CAUSING DISEASES CLASSD ELSWHR Status : Acute Comment: Will stay for 48 hr for monitoring for signs of GBS infection for (5) History of maternal Chlamydia infection, currently in third trimester Code(s): O09.293 - SUPRVSN OF PREG W POOR REPRODCTV OR OBSTET HX, THIRD TRI Status: Acute Comment: LAMONTE 02/16 (6) History of maternal gonorrhea, currently in third trimester Code(s): O09.893 - SUPERVISION OF OTHER HIGH RISK PREGNANCIES, THIRD TRIMESTER Status: Acute Comment: LAMONTE on 02/16 (7) History of seizures Code(s): Z87.898 - PERSONAL HISTORY OF OTHER SPECIFIED CONDITIONS Status: Acute <Mervin Pérez - Last Filed: 02/21/18 08:10> Vital Signs (12 hours) Temp Pulse Resp BP BP 02/21/18 08:56 99 130/72 02/21/18 08:15 98.0 F 99 18 02/21/18 07:00 98.0 F 99 18 130/72 02/21/18 04:00 98.4 F 95 18 02/21/18 00:00 98.6 F 95 18 Weight Weight 81.647 kg Result Diagrams: 02/21/18 04:34 02/21/18 04:34 Additional Labs: Post Labs Blood Type B POSITIVE 02/20/18 06:06 Hep Bs Antigen Non-Reactive S/CO (NonReactive) 02/20/18 06:06 <Bethany Aguilar - Last Filed: 02/21/18 12:02> Attending Addendum - Attending Addendum Date/Time: 02/21/18 1158 I personally evaluated the patient and discussed the management with Dr. Pérez and Dr. Jones I agree with the History, Examination, Assessment and Plan documented above with any addition or exceptions noted below. 17 yo now female s/p STAT PLTCS on 02/20/18 at 38.1 wks due to severe unresolving bradycardia due to suspected placenta abruption. POD/PPD#1 Reports abdominal bloating this AM but otherwise no complaints. UOP = 5115 mL in 24 hours BP normotensive Sleepy but NAD. RRR, no murmurs. CTA bilaterally. Soft, appropriately tender, mild distension. FROM. No edema. +2 reflexes. 1. s/p STAT PLTCS: Hysterotomy closed in 2 layers. Bilateral extensions, however not extending into cervix. Has received 2 doses of Ancef due to infection risk and due to laboring (and hx of recurrent STIs) Azithromycin added. Continue routine postop care. 2. Preeclampsia with severe features on mag: Started on oral Labetolol. BPs have improved. Will stop mag sulfate. Good diuresis. Will need ASA ppx with future pregnancies. No NSAIDs for pain control. Able to transfer to . 3. Recurrent STIs in : LAMONTE neg this week. PPX for . 4. Iron def anemia: Continue supplemental iron. 5. GBS pos: Received PCN x 4 hours. 6. hx of childhood seizure d/o (last seizure 8 years ago): Monitor Yassine <Bethany Aguilar - Last Filed: 02/21/18 12:02>
[2018-02-21] MEDS ORDERED: HYDROcodone/Acetaminophen 5/325 mg Tablet PO PRN (08:27)
[2018-02-21] MEDS: Labetalol 100 MG TAB PO SCH (08:56)
[2018-02-21] MEDS ORDERED: HYDROcodone/Acetaminophen 5/325 mg Tablet PO SCH (09:00)
[2018-02-21] MEDS ORDERED: Simethicone Chewable 80 MG TAB PO SCH (11:08)
[2018-02-21] MEDS ORDERED: Docusate 100 MG CAP PO SCH (11:08)
[2018-02-21] MEDS ORDERED: Polyethylene Glycol 3350 17 GM Packet PO PRN (11:11)
[2018-02-21] MEDS ORDERED: Acetaminophen 325 MG TAB PO PRN (13:24)
[2018-02-21] MEDS ORDERED: Bisacodyl 10 MG SUPP PR PRN (13:24)
[2018-02-21] MEDS ORDERED: Lanolin Ointment 7 GM TUBE TOP PRN (13:24)
[2018-02-21] MEDS ORDERED: diphenhydrAMINE 25 MG CAP PO PRN (13:24)
--- NOTE | 2018-02-21 13:34 | PDOC.PP ---
Post Progress Note Post Day #: 2 Subjective: 17 yo G1 s/p stat c section for prolonged bradycardia with a hx of new onset pre eclampsia w/severe features. Now s/p 24 hours Mg. Blood pressures have been controlled since delivery. Pt denies n/v, headache, changes in vision , difficulty breathing, sob, peripheral numbness/tingling. PO intake tolerated: yes Flatus: no Ambulation: yes Vital Signs (12 hours) Temp Pulse Resp BP BP 02/21/18 12:00 98.6 F 101 H 18 02/21/18 11:00 98.6 F 101 H 18 119/80 02/21/18 08:56 99 130/72 02/21/18 08:15 98.0 F 99 18 02/21/18 07:00 98.0 F 99 18 130/72 02/21/18 04:00 98.4 F 95 18 Weight Weight 81.647 kg - Physical Examination General: NAD Cardiovascular: no m/r/g, RRR Respiratory: clear to auscultation bilaterally Abdominal: + bowel sounds Skin: CS incision dry & intact Neurological: no gross focal deficits Psychiatric: A&Ox3 Result Diagrams: 02/21/18 04:34 02/21/18 04:34 Additional Labs: Post Labs Blood Type B POSITIVE 02/20/18 06:06 Hep Bs Antigen Non-Reactive S/CO (NonReactive) 02/20/18 06:06 (1) Preeclampsia, severe Code(s): O14.10 - SEVERE PRE-ECLAMPSIA, UNSPECIFIED TRIMESTER Status: Acute QualifierTitle: Trimester: third trimester Qualified Code(s): O14.13 - Severe pre-eclampsia, third trimester Comment: Pt's bp's have been controlled since delivery. She denies any complaints. UOP has been adequate. No signs of mg toxicity. Mg has been dc'd (2) PROM (premature rupture of membranes) Code(s): O42.90 - AMSIHA ROM, 7TH0 BETW RUPT & ONST LABR, UNSP WEEKS OF GEST Status: Acute QualifierTitle: PROM onset of labor timing: onset of labor within 24 hours of rupture PROM gestational age: full term Qualified Code(s): O42.02 - Full- term premature rupture of membranes, onset of labor within 24 hours of rupture Comment: at 1100 a prolonged deceleration was noted into the 70s. Heart rate was unresponsive to scalp stimulation, maternal position change, and O2. Stat was called. (3) History of maternal gonorrhea, currently in third trimester Code(s): O09.893 - SUPERVISION OF OTHER HIGH RISK PREGNANCIES, THIRD TRIMESTER Status: Acute Comment: LAMONTE on 02/16 (4) Third trimester Code(s): Z34.93 - ENCNTR FOR SUPRVSN OF NORMAL PREG, UNSP, THIRD TRIMESTER Status: Acute Comment: PROM, continue induction as above <Lyndon Jones - Last Filed: 02/21/18 13:31> Post Day #: 1 Vital Signs (12 hours) Temp Pulse Resp BP BP 02/21/18 12:00 98.6 F 101 H 18 02/21/18 11:00 98.6 F 101 H 18 119/80 02/21/18 08:56 99 130/72 02/21/18 08:15 98.0 F 99 18 02/21/18 07:00 98.0 F 99 18 130/72 02/21/18 04:00 98.4 F 95 18 Weight Weight 81.647 kg Result Diagrams: 02/21/18 04:34 02/21/18 04:34 Additional Labs: Post Labs Blood Type B POSITIVE 02/20/18 06:06 Hep Bs Antigen Non-Reactive S/CO (NonReactive) 02/20/18 06:06 <Bethany Aguilar - Last Filed: 02/21/18 14:12> Attending Addendum - Attending Addendum Date/Time: 02/21/18 1411 17 yo now female s/p STAT PLTCS on 02/20/18 at 38.1 wks due to severe unresolving bradycardia due to suspected placenta abruption. POD/PPD#1 Reports abdominal bloating this AM but otherwise no complaints. UOP = 5115 mL in 24 hours BP normotensive 1. s/p STAT PLTCS: Hysterotomy closed in 2 layers. Bilateral extensions, however not extending into cervix. Has received 2 doses of Ancef due to infection risk and due to laboring (and hx of recurrent STIs) Azithromycin added. Continue routine postop care. 2. Preeclampsia with severe features on mag: Started on oral Labetolol. BPs have improved. Off mag sulfate and doing well. Good diuresis. Will need ASA ppx with future pregnancies. No NSAIDs for pain control. Able to transfer to . 3. Recurrent STIs in : LAMONTE neg this week. PPX for infant. 4. Iron def anemia: Continue supplemental iron. 5. GBS pos: Received PCN x 4 hours. 6. hx of childhood seizure d/o (last seizure 8 years ago): Monitor ABrayMD <Bethany Aguilar - Last Filed: 02/21/18 14:12>
[2018-02-21] MEDS: HYDROcodone/Acetaminophen 7.5/325 mg Tablet PO PRN ×3 (13:40→21:55)
[2018-02-21] MEDS: Penicillin G 2.5 MILL.units 2.5 MILL.UNITS in Premix Bag 1 BAG IVPB SCH (13:55)
--- NOTE | 2018-02-21 13:56 | PDOC.OPDEL ---
OB Operative/Delivery Note Delivery Dr/Surgeon: Bethany Aguilar MD Assist: Bg Smith MD, Dwayne Butt MD Pre-Delivery Diagnosis: non-reassuring tracing (Persistent bradycardia with suspected placental abruption) Procedure/Post Delivery Dx: primary low transverse CS Weeks gestation: 38 (38.1 wks) Anesthesia: other (Epidural that was converted to general after the start of the case.) - Findings A Sex: female Weight: 2.516 kg - 1 min: 8 - 5 min: 9 (ApH = 7.29) - Additional Findings/Plan Placenta delivered: other (Expressed, intact with 3VC) findings: low transverse hysterotomy with extension (Bilaterally. Easily incorporated into hysterotomy closure. Did not extend into cervix.), normal uterus, normal tubes, normal ovaries Estimated blood loss: 750 mL Compilations/Other Findings: Preop Dx: 1. Term sIUP 2. Preeclampsia with severe features 3. Suspected placental abruption 4. Persistent bradycardia 5. Maternal BMI 36 6. Hx of maternal childhood seizure disorder 7. Iron def anemia 8. Hx of STIs this Postop Dx: Same as above Procedures: 1. Primary LTCS with Pfannensteil skin incision IVFs: 1200 mL UOP: 200 mL Surgical risks: The patient was informed of the risk and benefits of the procedure. Risks included but were not limited to bleeding, infection, injury to internal organs , and possible hysterectomy. The patient expressed understanding of the risks involved. All questions were answered and the patient consented to the procedure. Description of the procedure: The patient was taken to the operating room where a time out was performed to confirm correct patient and correct procedure. Epidural anesthesia was adequately established initially. However, during the middle of the case patient needed to be placed under general anesthesia. Prophylactic IV antibiotics with Ancef were administered. Azithromycin was given after skin incision. The patient was then placed in the dorsal supine position with a left tilt of the hips. Pressure points were padded. A Bovie grounding pad was placed on the patients right lower extremity. Kumar catheter was in place to monitor urine output during the case. A Donn hugger was placed to maintain control of core body temperature. The patient was then prepped (not shaved due to urgent nature) and draped in the usual sterile fashion for a Pfannensteil incision. An incision was made in the skin with a surgical scalpel and sharp and blunt dissection was carried out over the subsequent layers of tissue including the fascia, followed by the Bovie electrocautery for hemostasis. The fascia was incised at the midline. The fascial incision was extended bilaterally using the curved Delgado scissors and blunt dissection. The superior edge of the fascial incision was grasp with Param clamps, tented up and the underlying rectus muscles were dissected off bluntly and sharply using curved Delgado scissors. Attention was then turned to the inferior edge, which was grasped with Param clamps, tented up and the underlying rectus muscles were dissected off bluntly and sharply. The rectus muscles were then divided at midline. The peritoneum was identified and bluntly entered at its superior margin taking care to avoid the bladder. The peritoneal incision was extended superiorly/inferiorly/ laterally using blunt dissection with good visualization of the bladder. The patient began experiencing severe pain and discomfort. She was placed under general anesthesia at this time. The Real-O retractor was placed into the abdomen. A transverse incision was made in the lower uterine segment using the scalpel. The uterine incision was extended in a cranial and caudal direction using blunt dissection. The amniotic sac was entered bluntly and the amniotic fluid was noted to be clear. The surgeons hand was placed into the uterine cavity. The head was identified and noted to be deep in the pelvis. head was elevated into the abdomen and delivered through the uterine incision with the assistance of fundal pressure. The was examined for a nuchal cord. No nuchal cord was identified. The infant was then delivered with traction and the assistance of fundal pressure. The infants oral and nasal passages were bulb suctioned. On delivery, the cord was clamped and cut. The infant was then passed off the table to the awaiting [facility] team for further care. Cord blood and cord segment were collected for routine analysis. The placenta delivered expressed intact with three-vessel cord. Oxytocin was administered by IV infusion to enhance uterine contractions. The uterine incision was reapproximated using 0 Monocryl in a running locked fashion. Extensions were easily incorporated into closure. A second vertical imbricating stitch with 0 Monocryl suture was applied. Non-hemostatic areas were reinforced using 0 Monocryl suture in [id number] stitches. Floseal was placed into the corners along the extensions to further ensure hemostasis. Good hemostasis was confirmed. The abdomen was evaluated, suctioned and cleared of visible clots. Hematuria was noted along the Kumar tubing and into the collection system. No gross evidence of bladder or ureter compromise was identified. To verify this methylene blue was back-washed into the bladder. No emission of dye noted in the surgical field. Prior to closure of fascia urine was again clear and no longer with evidence of hematuria. The peritoneum was reapproximated using 2-0 Vicryl in a running non-locked fashion. The rectus muscles were reapproximated using 2-0 Vicryl in interrupted vertical mattress stitches. The fascia was reapproximated using 0 PDS in a running non-locked fashion. Fascia and surrounding tissue was irrigated with warm NS followed by Bovie electrocautery for non-hemostatic areas. The subcuticular tissue was reapproximated using 2-0 Plain Gut in simple interrupted fashion. The skin was reapproximated using 4-0 Monocryl. Steri Stripes along with a pressure dressing were placed at the end of the case. All needle, sponge, and instrument counts were noted to be correct x 3 at the end of the procedure. The patient tolerated the procedure well and was transferred to the recovery room in stable condition on magnesium sulfate drip. Post delivery plan: recovery in LICU
[2018-02-21] MEDS: Prenatal Vitamin 1 TAB PO SCH (13:59)
[2018-02-21] MEDS: Ferrous Sulfate 325 MG TAB PO SCH (17:45)
[2018-02-21] MEDS: Docusate Calcium (SURFAK) 240 MG CAP PO SCH (21:03)
[2018-02-22] MEDS: HYDROcodone/Acetaminophen 7.5/325 mg Tablet PO PRN ×4 (02:04→15:05)
[2018-02-22] MEDS ORDERED: Sodium Chloride 0.9% 10 ML ONE (04:35)
[2018-02-22] MEDS: Simethicone Chewable 80 MG TAB PO PRN ×2 (04:38→23:29)
[2018-02-22] MEDS: Ferrous Sulfate 325 MG TAB PO SCH ×2 (07:25→17:12)
[2018-02-22] MEDS: Docusate Calcium (SURFAK) 240 MG CAP PO SCH ×2 (07:25→19:58)
[2018-02-22] MEDS: Prenatal Vitamin 1 TAB PO SCH (07:25)
--- NOTE | 2018-02-22 07:51 | PDOC.PP ---
Post Progress Note Post Day #: 2 Subjective: 17 yo G1 s/p stat PLTCS @ 38.2 weeks dt prolonged patricia and concern for abruption. Pt also had new onset pre eclampsia w/severe features at the time of presentation. Mg was stopped at 24 hours post delivery yesterday. Since then BP has been in normal range with the exception of one recorded BP of 153/89. Pt denies headache, changes in vision, n/v, weakness, numbness/tingling. She complains of incisional pain that is keeping her from ambulating and eating. Otherwise she has no specific complaints. She denies breast tenderness, chest pain, SOB. She is urinating without issue. Vaginal bleeding is minimal. PO intake tolerated: yes Flatus: yes Ambulation: yes Vital Signs (12 hours) Temp Pulse Resp BP Pulse Ox 02/22/18 04:00 99.2 F 102 H 20 129/60 02/22/18 00:00 99.2 F 110 H 18 125/58 L 02/21/18 20:00 99.3 F 94 20 129/81 98 Weight Weight 81.647 kg - Physical Examination General: NAD Cardiovascular: no m/r/g, RRR Respiratory: clear to auscultation bilaterally Abdominal: + bowel sounds, lochia, no distention Deviation from normal: PT reports diffuse abdominal tenderness Extremities: negative homans (B) Skin: CS incision dry & intact Neurological: no gross focal deficits Psychiatric: A&Ox3, normal affect Result Diagrams: 02/21/18 04:34 02/21/18 04:34 Additional Labs: Post Labs Blood Type B POSITIVE 02/20/18 06:06 Hep Bs Antigen Non-Reactive S/CO (NonReactive) 02/20/18 06:06 (1) Term delivered Code(s): O80 - ENCOUNTER FOR FULL-TERM UNCOMPLICATED DELIVERY Status: Acute Comment: Pt is overall doing well, though she reports poor pain control. I discussed with her the importance of ambulation and how it will help her to feel better and decrease risk of DVT. Will schedule norco during the day today in an attempt to stay ahead of her pain. Dt pre-e she cannot have NSAIDs. Otherwise will continue normal post care. (2) Preeclampsia, severe Code(s): O14.10 - SEVERE PRE-ECLAMPSIA, UNSPECIFIED TRIMESTER Status: Acute QualifierTitle: Trimester: third trimester Qualified Code(s): O14.13 - Severe pre-eclampsia, third trimester Comment: BP continues to be under control since dc'ing Mg. She denies signs symptoms of severe features. (3) PROM (premature rupture of membranes) Code(s): O42.90 - AMISHA ROM, 7TH0 BETW RUPT & ONST LABR, UNSP WEEKS OF GEST Status: Resolved QualifierTitle: PROM onset of labor timing: onset of labor within 24 hours of rupture PROM gestational age: full term Qualified Code(s): O42.02 - Full- term premature rupture of membranes, onset of labor within 24 hours of rupture (4) History of maternal gonorrhea, currently in third trimester Code(s): O09.893 - SUPERVISION OF OTHER HIGH RISK PREGNANCIES, THIRD TRIMESTER Status: Resolved Comment: LAMONTE on 02/16 (5) Third trimester Code(s): Z34.93 - ENCNTR FOR SUPRVSN OF NORMAL PREG, UNSP, THIRD TRIMESTER Status: Resolved <Lyndon Jones - Last Filed: 02/22/18 07:43> Vital Signs (12 hours) Temp Pulse Resp BP 02/22/18 12:33 98.2 F 109 H 18 137/61 02/22/18 12:00 99.2 F 102 H 20 02/22/18 07:46 98.1 F 94 20 143/86 H 02/22/18 04:00 99.2 F 102 H 20 129/60 Weight Weight 81.647 kg Result Diagrams: 02/21/18 04:34 02/21/18 04:34 Additional Labs: Post Labs Blood Type B POSITIVE 02/20/18 06:06 Hep Bs Antigen Non-Reactive S/CO (NonReactive) 02/20/18 06:06 <Bethany Aguilar - Last Filed: 02/22/18 13:08> Attending Addendum - Attending Addendum Date/Time: 02/22/18 1304 I personally evaluated the patient and discussed the management with Dr. Jones I agree with the History, Examination, Assessment and Plan documented above with any addition or exceptions noted below. 17 yo now female s/p STAT PLTCS on 02/20/18 at 38.1 wks due to severe unresolving bradycardia due to suspected placenta abruption. POD/PPD#2 States her pain is doing better today than yesterday. Ambulated in room last night. +flatus. Lochia mild. 1. s/p STAT PLTCS: Hysterotomy closed in 2 layers. Bilateral extensions, however not extending into cervix. Has received 2 doses of Ancef due to infection risk and due to laboring (and hx of recurrent STIs) Azithromycin added. Continue routine postop care. Encouraged ambulation. Walking program consulted. 2. Preeclampsia with severe features on mag: Started on oral Labetolol but BPs low normal. Held. BPs off meds normotensive. Will continue to monitor throughout the day and likely d/c in AM. Will follow up at [facility] on Friday or for incision check and BP eval. Will need ASA ppx with future pregnancies. No NSAIDs for pain control. 3. Recurrent STIs in : LAMONTE neg 02/16/18. PPX for given. 4. Iron def anemia: Continue supplemental iron. 5. GBS pos: Received PCN x 4 hours. 6. hx of childhood seizure d/o (last seizure 8 years ago): Monitor ABrayMD <Bethany Aguilar - Last Filed: 02/22/18 13:08>
[2018-02-22] MEDS: HYDROcodone/Acetaminophen 5/325 mg Tablet PO PRN ×2 (19:00→23:29)
[2018-02-22] MEDS: Cepastat Lozenges 1 LOZ PO PRN ×2 (19:58→23:33)
[2018-02-23] MEDS: HYDROcodone/Acetaminophen 5/325 mg Tablet PO PRN ×5 (03:41→22:00)
[2018-02-23] MEDS ORDERED: Labetalol 100 MG TAB PO SCH (05:00)
[2018-02-23] MEDS: Docusate Calcium (SURFAK) 240 MG CAP PO SCH ×2 (08:37→22:00)
[2018-02-23] MEDS: Ferrous Sulfate 325 MG TAB PO SCH ×2 (08:37→16:49)
[2018-02-23] MEDS: Simethicone Chewable 80 MG TAB PO PRN ×2 (08:37→16:46)
[2018-02-23] MEDS: Prenatal Vitamin 1 TAB PO SCH (08:38)
--- NOTE | 2018-02-23 10:26 | PDOC.PP ---
Post Progress Note Post Day #: 3 Subjective: Pt states that her pain is controlled. She is tolerating a normal diet, passing flatus, and ambulating. Denies headaches or vision changes this am. She did have 3 elevated blood pressures this morning. PO intake tolerated: yes Flatus: yes Ambulation: yes Vital Signs (12 hours) Pulse BP BP 02/23/18 05:14 99 02/23/18 04:15 99 162/92 H 02/22/18 23:45 95 146/89 H Weight Weight 81.647 kg - Physical Examination General: NAD Cardiovascular: no m/r/g, RRR Respiratory: clear to auscultation bilaterally, non-labored breathing Abdominal: + bowel sounds, lochia (minimal) Skin: CS incision dry & intact Neurological: no gross focal deficits Psychiatric: A&Ox3 Result Diagrams: 02/21/18 04:34 02/21/18 04:34 Additional Labs: Post Labs Blood Type B POSITIVE 02/20/18 06:06 Hep Bs Antigen Non-Reactive S/CO (NonReactive) 02/20/18 06:06 (1) Preeclampsia, severe Code(s): O14.10 - SEVERE PRE-ECLAMPSIA, UNSPECIFIED TRIMESTER Status: Acute QualifierTitle: Trimester: third trimester Qualified Code(s): O14.13 - Severe pre-eclampsia, third trimester Comment: BP elevated this am to 162/92. She denies signs and symptoms of severe features however. Labetalol AM dose given at 0500. We will observe her blood pressures today and consider increasing labetalol to 300mg BID. (2) Positive GBS test Code(s): B95.1 - STREPTOCOCCUS, GROUP B, CAUSING DISEASES CLASSD ELSWHR Status : Acute Comment: s/p 48 hr monitoring for signs of GBS infection of (3) Status post Code(s): Z98.891 - HISTORY OF UTERINE SCAR FROM PREVIOUS SURGERY Status: Acute Comment: S/P stat for bradycardia. Now doing well on . Pain well controlled on norco. (4) History of maternal Chlamydia infection, currently in third trimester Code(s): O09.293 - SUPRVSN OF PREG W POOR REPRODCTV OR OBSTET HX, THIRD TRI Status: Acute Comment: LAMONTE 02/16 <Meghan Dallas - Last Filed: 02/23/18 10:24> Vital Signs (12 hours) Temp Pulse Resp BP 02/23/18 16:55 98.1 F 79 18 120/85 02/23/18 12:00 98.2 F 83 18 131/70 02/23/18 08:30 99.1 F 72 18 130/72 Weight Weight 81.647 kg Result Diagrams: 02/21/18 04:34 02/21/18 04:34 Additional Labs: Post Labs Blood Type B POSITIVE 02/20/18 06:06 Hep Bs Antigen Non-Reactive S/CO (NonReactive) 02/20/18 06:06 <Lc Felton - Last Filed: 02/23/18 17:49> Attending Addendum - Attending Addendum Date/Time: 02/23/18 1522 I personally evaluated the patient and discussed the management with Dr. England. I agree with and repeated the History, Examination, Assessment and Plan documented above with any addition or exceptions noted below. Continue to monitor for severe pressures/symptoms. Anticipate d/c tomorrow if well controlled. <Lc Felton - Last Filed: 02/23/18 17:49>
[2018-02-23] MEDS ORDERED: Sodium Chloride 0.9% 10 ML ONE (16:48)
[2018-02-23] MEDS: Labetalol 100 MG TAB PO SCH (21:59)
[2018-02-24] MEDS: HYDROcodone/Acetaminophen 5/325 mg Tablet PO PRN ×3 (02:33→13:30)
--- NOTE | 2018-02-24 07:25 | PDOC.PP ---
Post Progress Note Post Day #: 4 Subjective: 17 yo [id number] s/p stat csection with PreE with severe features. BP's controlled overnight. Pt ambulating, tolerating a normal diet, passing flatus, and pain controlled, with minimal bleeding. PO intake tolerated: yes Flatus: yes Ambulation: yes Vital Signs (12 hours) Temp Pulse Resp BP BP 02/24/18 04:00 98.3 F 87 18 137/76 02/23/18 21:59 88 131/71 02/23/18 20:00 98.1 F 88 18 131/71 Weight Weight 81.647 kg - Physical Examination General: NAD Cardiovascular: no m/r/g, RRR Respiratory: clear to auscultation bilaterally, non-labored breathing Abdominal: + bowel sounds, lochia (minimal), appropriately TTP Skin: CS incision dry & intact, no rash Neurological: no gross focal deficits Psychiatric: A&Ox3, normal affect Result Diagrams: 02/21/18 04:34 02/21/18 04:34 Additional Labs: Post Labs Blood Type B POSITIVE 02/20/18 06:06 Hep Bs Antigen Non-Reactive S/CO (NonReactive) 02/20/18 06:06 (1) Preeclampsia, severe Code(s): O14.10 - SEVERE PRE-ECLAMPSIA, UNSPECIFIED TRIMESTER Status: Acute QualifierTitle: Trimester: third trimester Qualified Code(s): O14.13 - Severe pre-eclampsia, third trimester Comment: BP controlled this am. She denies symptoms of headache or vision changes. Pt is on Labetalol 200mg BID. Ready for discharge. (2) Positive GBS test Code(s): B95.1 - STREPTOCOCCUS, GROUP B, CAUSING DISEASES CLASSD ELSWHR Status : Acute Comment: s/p 48 hr monitoring for signs of GBS infection of (3) Status post Code(s): Z98.891 - HISTORY OF UTERINE SCAR FROM PREVIOUS SURGERY Status: Acute Comment: S/P stat for bradycardia. Now doing well on . Pain well controlled on norco. (4) History of maternal Chlamydia infection, currently in third trimester Code(s): O09.293 - SUPRVSN OF PREG W POOR REPRODCTV OR OBSTET HX, THIRD TRI Status: Acute Comment: LAMONTE 02/16 <Meghan Dallas - Last Filed: 02/24/18 08:58> Vital Signs (12 hours) Temp Pulse Resp BP BP 02/24/18 11:57 98.0 F 106 H 20 124/60 02/24/18 08:08 77 02/24/18 08:00 98.4 F 77 20 02/24/18 07:52 98.4 F 77 20 160/90 H 02/24/18 04:00 98.3 F 87 18 137/76 Weight Weight 81.647 kg Result Diagrams: 02/21/18 04:34 02/21/18 04:34 Additional Labs: Post Labs Blood Type B POSITIVE 02/20/18 06:06 Hep Bs Antigen Non-Reactive S/CO (NonReactive) 02/20/18 06:06 <Lc Felton - Last Filed: 02/24/18 12:00> Attending Addendum - Attending Addendum Date/Time: 02/24/18 1200 I personally evaluated the patient and discussed the management with Dr. England. I agree with the History, Examination, Assessment and Plan documented above with any addition or exceptions noted below. Improved pressures, no preE symptoms. Ok for discharge with follow up. <Lc Felton - Last Filed: 02/24/18 12:00>
[2018-02-24] MEDS: Labetalol 100 MG TAB PO SCH (08:08)
[2018-02-24] MEDS: Docusate Calcium (SURFAK) 240 MG CAP PO SCH (08:09)
[2018-02-24] MEDS: Prenatal Vitamin 1 TAB PO SCH (08:09)
[2018-02-24] MEDS: Ferrous Sulfate 325 MG TAB PO SCH (08:09)
[2018-02-24 11:58] VITALS: BP 124/60; TEMP 98
== END 2018-02-24 16:05 | disposition home or self-care (01) | DRG 765 ==
LOC: L&D/OP 03:42 → L&D 05:37 → 3SW 02-21 15:45
PROVIDERS: ADMIT Family Medicine; ATTEND Family Medicine
PROC: 10D00Z1 Extraction of Products of Conception, Low, Open Approach (ICD-10-PCS; principal; 2018-02-20)
DX: O42.02 Full-term premature rupture of membranes, onset of labor within 24 hours of rupture (principal); O45.93 Premature separation of placenta, unspecified, third trimester; O14.14 Severe pre-eclampsia complicating childbirth; O76 Abnormality in fetal heart rate and rhythm complicating labor and delivery; O36.8130 Decreased fetal movements, third trimester, not applicable or unspecified; O99.02 Anemia complicating childbirth; O99.89 Other specified diseases and conditions complicating pregnancy, childbirth and the puerperium; D64.9 Anemia, unspecified; R73.03 Prediabetes; O99.824 Streptococcus B carrier state complicating childbirth; Z3A.38 38 weeks gestation of pregnancy; Z37.0 Single live birth
CPT/HCPCS: 36415; 51702; 74018; 80053; 80306; 81001; 82570; 82805; 84112; 84156; 84550; 85025; 86780; 86850; 86900; 86901; 87340; 87591; 88307; 99285; A4216; J0360; J0456; J0690; J1200; J2001; J2274; J2405; J2540; J2590; J2704; J3010; J3475; J3490; J7050; Q9968; S0020

== ENCOUNTER 2018-09-22 07:19 | Emergency (ER) | payer OTHER ==
[2018-09-22 07:54] LABS: Clarity Cloudy (Clear); Leukocyte Moderate (Negative); Nitrite Negative (Negative); Protein, Urine (Dipstick) 300 mg/dL (Neg-Trace); Specific Gravity, Urine 1.023 (1.002-1.036); pH, Urine 6.5 (5.0-9.0)
[2018-09-22 07:55] LABS: Bilirubin Negative (Negative); Blood, Urine Large (Negative); Glucose, Urine (Dipstick) Negative (Negative); Urobilinogen 0.2 mg/dL (0.2-1.0)
[2018-09-22 07:58] LABS: Bacteria/HPF 2+ HPF (None Seen); Squamous Epithelial 0-3 HPF (0-3); Transitional Epithelial 0-3 HPF (0-3)
[2018-09-22 07:59] LABS: Pregnancy Test - Urine (BHCG) Negative (Negative); Pregu Control Background? CLEAR/WHITE (CLR/WHITE); Pregu Control Bar Appear? YES (CONTROL BAR); Specific Gravity 1.023 (1.002-1.036)
== END 2018-09-22 08:50 | disposition home or self-care (01) ==
LOC: ERS 07:19
DX: N39.0 Urinary tract infection, site not specified (principal); G40.909 Epilepsy, unspecified, not intractable, without status epilepticus
CPT/HCPCS: 81003; 81015; 81025; 87086; 99284

== ENCOUNTER 2018-10-20 14:24 | Emergency (ER) | payer OTHER ==
[2018-10-20] MEDS ORDERED: Acetaminophen 325 MG TAB ONE (16:00)
[2018-10-20] MEDS ORDERED: Bicillin LA 1.2 MILLION UNITS/2 ML SYRINGE ONE (16:26)
== END 2018-10-20 16:30 | disposition home or self-care (01) ==
LOC: ERS 14:24
DX: J03.90 Acute tonsillitis, unspecified (principal); G40.909 Epilepsy, unspecified, not intractable, without status epilepticus; Z79.899 Other long term (current) drug therapy
CPT/HCPCS: 87430; 87804; 96372; J0561

== ENCOUNTER 2018-12-13 16:50 | Emergency (ER) | payer BC, OTHER ==
[2018-12-13 17:40] LABS: Bilirubin Negative (Negative); Blood, Urine Large (Negative); Clarity TURBID (Clear); Glucose, Urine (Dipstick) Negative (Negative); Leukocyte Large (Negative); Nitrite Negative (Negative); Protein, Urine (Dipstick) 300 mg/dL (Neg-Trace); Specific Gravity, Urine 1.023 (1.002-1.036)
[2018-12-13 17:41] LABS: Pregnancy Test - Urine (BHCG) Negative (Negative); Pregu Control Background? CLEAR/WHITE (CLR/WHITE); Pregu Control Bar Appear? YES (CONTROL BAR); Specific Gravity 1.023 (1.002-1.036)
[2018-12-13 17:43] LABS: RBC/HPF GREATER THAN 50-TNTC HPF (0-3)
[2018-12-13 17:46] LABS: Pathc Cast-AUWi Flag 24.06 (0-2.49)
[2018-12-13 17:53] LABS: Bacteria/HPF Rare-Few HPF (None Seen); Hyaline Casts/LPF 0-3 HYALINE CAST LPF (0-3 Hyaline); Other Casts/LPF None Seen LPF (0-3 Hyaline)
[2018-12-13 17:54] LABS: Transitional Epithelial 0-3 HPF (0-3)
[2018-12-13] MEDS ORDERED: cefTRIAXone\\ROCEPHIN 1 GM VIAL ONE (18:06)
[2018-12-13] MEDS ORDERED: Lidocaine 1% PF 5 ML VIAL ONE (18:06)
== END 2018-12-13 18:28 | disposition home or self-care (01) ==
LOC: ERS 16:50
DX: N39.0 Urinary tract infection, site not specified (principal); G40.909 Epilepsy, unspecified, not intractable, without status epilepticus
CPT/HCPCS: 81003; 81015; 81025; 87086; 96372; J0696; J2001

== ENCOUNTER 2019-02-25 00:57 | Emergency (ER) | payer BC, OTHER ==
[2019-02-25 01:13] LABS: Bilirubin Negative (Negative); Blood, Urine Moderate (Negative); Clarity CLEAR (Clear); Glucose, Urine (Dipstick) Negative (Negative); Leukocyte Moderate (Negative); Nitrite Negative (Negative); Protein, Urine (Dipstick) Trace mg/dL (Neg-Trace); Urobilinogen 0.2 mg/dL (0.2-1.0); pH, Urine 6.5 (5.0-9.0)
[2019-02-25 01:15] LABS: Pregnancy Test - Urine (BHCG) Negative (Negative); Pregu Control Background? CLEAR/WHITE (CLR/WHITE); Pregu Control Bar Appear? YES (CONTROL BAR); Specific Gravity 1.002 (1.002-1.036); Specific Gravity, Urine 1.002 (1.002-1.036)
[2019-02-25 01:16] LABS: Pathc Cast-AUWi Flag 0.54 (0-2.49)
[2019-02-25 01:24] LABS: #Basophils 0.1 thou/uL (0.0-0.2); #Eosinphils 0.1 thou/uL (0.0-0.7); #Monocytes 0.4 thou/uL (0.11-0.59); #Neutrophils 4.3 thou/uL (1.40-6.50); %Basophils 1.1 % (0.0-1.0); %Eosinophils 1.5 % (0.0-10.0); %Lymphocytes 44.6 % (28.0-48.0); %Monocytes 4.8 % (0.0-4.0); Hemoglobin 11.4 g/dL (12.0-16.0); Mean Corpuscular HGB CONC 31.6 g/dL (32.0-36.0); Mean Corpuscular Hemoglobin 25.1 pg (25.0-35.0); Mean Corpuscular Volume 79.6 fL (78.0-98.0); Mean Platelet Volume 7.7 fL (7.4-10.4); Platelet Count 359 thou/uL (130-400); RBC Distribution Width 14.8 % (11.5-14.5); Red Blood Cell (RBC) Count 4.52 mill/uL (4.00-5.20); White Blood Cell (WBC) Count 8.9 thou/uL (4.8-10.8)
[2019-02-25 01:29] LABS: Bacteria/HPF None Seen HPF (None Seen); Renal Epithelial None Seen HPF (0-3); Transitional Epithelial NONE SEEN HPF (0-3)
[2019-02-25 01:33] LABS: Hyaline Casts/LPF NONE SEEN LPF (0-3 Hyaline)
[2019-02-25 01:44] LABS: ALT (SGPT) 14 U/L (8-55); AST (SGOT) 17 U/L (5-34); Albumin 4.1 g/dL (3.5-5.0); Alkaline Phosphatase 89 U/L (40-150); Anion Gap 14 mmol/L (10-20); BUN (Urea Nitrogen) 12 mg/dL (7.0-18.7); Bilirubin, Total 0.2 mg/dL (0.2-1.2); Calc. Creatinine Clearance 0 mL/min (70-130); Calcium 9.5 mg/dL (7.8-10.44); Carbon Dioxide 21 mmol/L (22-29); Chloride 105 mmol/L (98-107); Estimated GFR-MDRD Greater than 90; Globulin 3.9 g/dL (2.4-3.5); Glucose 104 mg/dL (70-105); Potassium 3.7 mmol/L (3.5-5.1); Sodium 136 mmol/L (136-145)
[2019-02-27 23:24] LABS: Chlamydia by PCR Not Detected (NotDetected); GC by PCR Not Detected (NotDetected)
== END 2019-02-25 03:23 | disposition home or self-care (01) ==
LOC: ERS 00:57
DX: N89.8 Other specified noninflammatory disorders of vagina (principal); R10.30 Lower abdominal pain, unspecified; G40.909 Epilepsy, unspecified, not intractable, without status epilepticus
CPT/HCPCS: 36415; 80053; 81003; 81015; 81025; 85025; 87086; 87480; 87491; 87510; 87591; 87660; 99284

== ENCOUNTER 2020-01-21 09:35 | Emergency (ER) | payer OTHER | END 2020-01-21 10:30 | disposition home or self-care (01) | LOC: ERS 09:35 | DX: R51 Headache (principal); G40.909 Epilepsy, unspecified, not intractable, without status epilepticus; Z79.899 Other long term (current) drug therapy | CPT/HCPCS: 99281 ==

== ENCOUNTER 2021-04-24 22:42 | Emergency (ER) | payer OTHER ==
[2021-04-24 23:19] LABS: Bacteria/HPF None Seen HPF (None Seen); Bilirubin Negative (Negative); Blood, Urine Negative (Negative); Clarity Clear (Clear); Glucose, Urine (Dipstick) Normal (Negative); Ketone, Urine Trace mg/dL (Negative); Leukocyte 25 Leu/uL (Negative); Nitrite Negative (Negative); Protein, Urine (Dipstick) 10 mg/dL (Neg-Trace); RBC/HPF 0-3 HPF (0-3); Specific Gravity, Urine 1.032 (1.002-1.036); WBC/HPF 0-3 HPF (0-3)
[2021-04-24 23:20] LABS: Pregnancy Test - Urine (BHCG) Negative (Negative); Pregu Control Background? CLEAR/WHITE (CLR/WHITE); Pregu Control Bar Appear? YES (CONTROL BAR); Specific Gravity 1.032 (1.002-1.036)
== END 2021-04-25 00:48 | disposition home or self-care (01) ==
LOC: ERS 22:42
DX: N93.9 Abnormal uterine and vaginal bleeding, unspecified (principal); G40.909 Epilepsy, unspecified, not intractable, without status epilepticus
CPT/HCPCS: 81003; 81015; 81025; 99284

== ENCOUNTER 2022-04-18 14:16 | Emergency (ER) | payer OTHER | END 2022-04-18 15:24 | disposition home or self-care (01) | LOC: ERS 14:16 | DX: K08.89 Other specified disorders of teeth and supporting structures (principal) | CPT/HCPCS: 99281 ==

== ENCOUNTER 2022-05-09 10:14 | Emergency (ER) | payer OTHER ==
[2022-05-09] MEDS ORDERED: Ketorolac Tromethamine 30 MG/ML VIAL ONE (10:58)
== END 2022-05-09 11:25 | disposition home or self-care (01) ==
LOC: ERS 10:14
DX: U07.1 COVID-19 (principal)
CPT/HCPCS: 96372; 99284; J1885; U0003; U0005

== ENCOUNTER 2022-11-26 14:54 | Emergency (ER) | payer OTHER ==
[2022-11-26 15:46] LABS: Bacteria/HPF None Seen HPF (None Seen); Bilirubin Negative (Negative); Blood, Urine Negative (Negative); Clarity Turbid (Clear); Glucose, Urine (Dipstick) Normal (Negative); Ketone, Urine Negative (Negative); Leukocyte 75 Leu/uL (Negative); Nitrite Negative (Negative); Protein, Urine (Dipstick) 10 mg/dL (Neg-Trace); RBC/HPF 0-3 HPF (0-3); Specific Gravity, Urine 1.023 (1.002-1.036); Urobilinogen Normal mg/dL (Less than 2); pH, Urine 7.5 (5.0-9.0)
[2022-11-26 15:56] LABS: Pregnancy Test - Urine (BHCG) Negative (Negative); Pregu Control Background? CLEAR/WHITE (CLR/WHITE); Pregu Control Bar Appear? YES (CONTROL BAR); Specific Gravity 1.023 (1.002-1.036)
[2022-11-26 22:48] LABS: Chlamydia by PCR Not Detected (NotDetected); GC by PCR Not Detected (NotDetected)
== END 2022-11-26 16:22 | disposition home or self-care (01) ==
LOC: ERS 14:54
DX: R82.81 Pyuria (principal); R30.0 Dysuria
CPT/HCPCS: 81003; 81015; 81025; 87086; 87480; 87491; 87510; 87591; 87660; 99283

== ENCOUNTER 2022-12-15 19:28 | Emergency (ER) | payer OTHER | END 2022-12-15 20:09 | disposition home or self-care (01) | LOC: ERS 19:28 | DX: A59.01 Trichomonal vulvovaginitis (principal) | CPT/HCPCS: 99283 ==

== ENCOUNTER 2023-10-04 20:18 | Emergency (ER) | payer OTHER ==
[2023-10-04 21:12] LABS: Bacteria/HPF None Seen HPF (None Seen); Bilirubin Negative (Negative); Blood, Urine Negative (Negative); CAUTI Indications for Culture Pelvic or flank pain; Clarity Extra Turbid (Clear); Glucose, Urine (Dipstick) Normal (Negative); Ketone, Urine Negative (Negative); Leukocyte Negative Leu/uL (Negative); Nitrite Negative (Negative); Pregnancy Test - Urine (BHCG) Negative (Negative); Protein, Urine (Dipstick) Negative (Neg-Trace); RBC/HPF 0-3 HPF (0-3); Specific Gravity, Urine 1.023 (1.002-1.036); Urobilinogen Normal mg/dL (Less than 2); WBC/HPF None Seen HPF (0-3); pH, Urine 7.5 (5.0-9.0)
[2023-10-04 21:13] LABS: Pregu Control Background? CLEAR/WHITE (CLR/WHITE); Pregu Control Bar Appear? YES (CONTROL BAR); Specific Gravity 1.023 (1.002-1.036); Urine Culture Reflex No No
[2023-10-06 10:36] LABS: Chlamydia by PCR, Vaginal Swab Not Detected (NotDetected); GC by PCR, Vaginal Swab Not Detected (NotDetected)
== END 2023-10-04 21:54 | disposition home or self-care (01) ==
LOC: ERS 20:18
DX: N89.8 Other specified noninflammatory disorders of vagina (principal)
CPT/HCPCS: 81001; 81025; 87070; 87205; 87480; 87491; 87510; 87591; 87660; 99284

== ENCOUNTER 2023-10-27 17:12 | Emergency (ER) | payer OTHER ==
[2023-10-27 17:57] LABS: Bacteria/HPF None Seen HPF (None Seen); Bilirubin Negative (Negative); Blood, Urine Negative (Negative); CAUTI Indications for Culture Dysuria,urgency,freq; Clarity Clear (Clear); Glucose, Urine (Dipstick) Normal (Negative); Ketone, Urine Negative (Negative); Leukocyte Negative Leu/uL (Negative); Nitrite Negative (Negative); Protein, Urine (Dipstick) 10 mg/dL (Neg-Trace); Specific Gravity, Urine 1.028 (1.002-1.036); Squamous Epithelial 0-3 HPF (0-3); WBC/HPF 0-3 HPF (0-3)
[2023-10-27 17:59] LABS: Urine Culture Reflex No No
[2023-10-28 00:34] LABS: Chlamydia by PCR, Vaginal Swab Not Detected (NotDetected); GC by PCR, Vaginal Swab Not Detected (NotDetected)
== END 2023-10-27 19:12 | disposition home or self-care (01) ==
LOC: ERS 17:12
DX: N76.0 Acute vaginitis (principal)
CPT/HCPCS: 81001; 87480; 87491; 87510; 87591; 87660; 99283

== ENCOUNTER 2023-12-18 12:37 | Emergency (ER) | payer OTHER ==
[2023-12-18 13:26] LABS: Bilirubin Negative (Negative); Blood, Urine Negative (Negative); Glucose, Urine (Dipstick) Negative (Negative); Ketone, Urine Negative (Negative); Leukocyte Negative (Negative); Nitrite Negative (Negative); Protein, Urine (Dipstick) Negative (Neg-Trace); Urobilinogen 0.2 mg/dL (Less than 2)
[2023-12-18 13:30] LABS: Clarity Clear (Clear)
[2023-12-18 13:31] LABS: Pregnancy Test - Urine (BHCG) Negative (Negative); Pregu Control Background? CLEAR/WHITE (CLR/WHITE); Pregu Control Bar Appear? YES (CONTROL BAR)
[2023-12-18 13:35] LABS: Bacteria/HPF None Seen HPF (None Seen); CAUTI Indications for Culture Dysuria,urgency,freq; RBC/HPF None Seen HPF (0-3); Squamous Epithelial 0-3 HPF (0-3); WBC/HPF None Seen HPF (0-3)
[2023-12-18 13:36] LABS: Urine Culture Reflex No No
[2023-12-19 01:27] LABS: Chlam.trachomatis by PCR,Urine Not Detected (NotDetected); GC N.gonorrhoeae PCR,UrineVOID Not Detected (NotDetected)
== END 2023-12-18 14:52 | disposition home or self-care (01) ==
LOC: ERS 12:37
DX: R30.0 Dysuria (principal)
CPT/HCPCS: 81001; 81025; 87491; 87591; 99283

== ENCOUNTER 2024-09-28 13:24 | Emergency (ER) | payer OTHER ==
[2024-09-28 15:43] LABS: Bacteria/HPF None Seen HPF (None Seen); Bilirubin Negative (Negative); Blood, Urine Negative (Negative); CAUTI Indications for Culture Pregnancy; Clarity Clear (Clear); Glucose, Urine (Dipstick) Normal (Negative); Ketone, Urine Negative (Negative); Leukocyte Negative Leu/uL (Negative); Nitrite Negative (Negative); Protein, Urine (Dipstick) Negative (Neg-Trace); RBC/HPF 0-3 HPF (0-3); Specific Gravity, Urine 1.007 (1.002-1.036); Squamous Epithelial 0-3 HPF (0-3); Urobilinogen Normal mg/dL (Less than 2); WBC/HPF 0-3 HPF (0-3); pH, Urine 6.5 (5.0-9.0)
[2024-09-28 15:45] LABS: Pregnancy Test - Urine (BHCG) Negative (Negative); Pregu Control Background? CLEAR/WHITE (CLR/WHITE); Pregu Control Bar Appear? YES (CONTROL BAR); Specific Gravity 1.007 (1.002-1.036); Urine Culture Reflex No No; Urine Culture Reflex Yes Yes
[2024-09-28] MEDS ORDERED: Acetaminophen 500 MG TAB ONE (16:00)
== END 2024-09-28 16:06 | disposition home or self-care (01) ==
LOC: ERS 13:24
DX: S06.0XAA Concussion with loss of consciousness status unknown, initial encounter (principal); N76.0 Acute vaginitis; Y04.8XXA Assault by other bodily force, initial encounter
CPT/HCPCS: 70450; 81001; 81025; 87077; 87086

== ENCOUNTER 2025-08-11 09:41 | Emergency (ER) | payer MEDICAID ==
[2025-08-11 10:30] LABS: Bacteria/HPF None Seen HPF (None Seen); CAUTI Indications for Culture Pelvic or flank pain; Glucose, Urine (Dipstick) Normal (Negative); Leukocyte Negative Leu/uL (Negative); Protein, Urine (Dipstick) 70 mg/dL (Neg-Trace); RBC/HPF 0-3 HPF (0-3); Specific Gravity, Urine 1.039 (1.002-1.036); WBC/HPF 0-3 HPF (0-3)
[2025-08-11 10:32] LABS: Urine Culture Reflex No No
[2025-08-11] MEDS ORDERED: Acetaminophen 500 MG TAB ONE (10:32)
[2025-08-11 11:41] LABS: #Basophils Less than 0.03 10x3/uL (0.0-0.2); #Eosinophils 0.04 10x3/uL (0.0-0.7); #Monocytes 0.50 10x3/uL (0.11-0.59); #Neutrophils 7.61 10x3/uL (1.40-6.50); %Basophils 0.1 % (0.0-1.0); %Eosinophils 0.4 % (0.0-10.0); %Lymphocytes 18.7 % (21.0-51.0); %Monocytes 5.0 % (0.0-10.0); %Neutrophils 75.4 % (42.0-75.0); Hematocrit 25.9 % (36.0-47.0); Hemoglobin 8.4 g/dL (12.0-16.0); Mean Corpuscular Hemoglobin 26.3 pg (27.0-31.0); Mean Corpuscular Volume 81.2 fL (78.0-98.0); Platelet Count 307 10x3/uL (130-400); Red Blood Cell (RBC) Count 3.19 mill/uL (4.20-5.40); White Blood Cell (WBC) Count 10.09 10x3/uL (4.8-10.8)
[2025-08-11 11:59] LABS: ALT (SGPT) 10 U/L (Less than 34); AST (SGOT) 17 U/L (11-34); Albumin 2.8 g/dL (3.1-4.5); Alkaline Phosphatase 78 U/L (40-110); Anion Gap 13 mmol/L (10-20); BUN (Urea Nitrogen) 9 mg/dL (7.0-18.7); Bilirubin, Total 0.2 mg/dL (0.3-1.2); Calc. Creatinine Clearance 0 mL/min (70-130); Calcium 8.9 mg/dL (7.8-10.44); Carbon Dioxide 21 mmol/L (22-29); Chloride 107 mmol/L (98-107); Globulin 4.1 g/dL (2.4-3.5); Glucose 94 mg/dL (70-105); Lipase 14 U/L (8-78); Potassium 3.6 mmol/L (3.5-5.1); Sodium 137 mmol/L (136-145)
[2025-08-11 13:58] LABS: Iron 34 ug/dL (50-170); Iron Binding Capacity, Total 509 mcg/dL (265-497)
== END 2025-08-11 14:34 | disposition home or self-care (01) ==
LOC: ERS 09:41
DX: D64.9 Anemia, unspecified (principal)
CPT/HCPCS: 80053; 81001; 82728; 83540; 83550; 83690; 85025; 87428; 93005

== ENCOUNTER 2025-09-13 11:18 | Emergency (ER) | payer MEDICAID ==
[2025-09-13 12:21] LABS: #Basophils Less than 0.03 10x3/uL (0.0-0.2); #Eosinophils 0.03 10x3/uL (0.0-0.7); #Monocytes 0.47 10x3/uL (0.11-0.59); #Neutrophils 5.65 10x3/uL (1.40-6.50); %Basophils 0.3 % (0.0-1.0); %Eosinophils 0.4 % (0.0-10.0); %Lymphocytes 19.7 % (21.0-51.0); %Monocytes 6.0 % (0.0-10.0); %Neutrophils 72.4 % (42.0-75.0); Hematocrit 30.5 % (36.0-47.0); Hemoglobin 9.6 g/dL (12.0-16.0); Mean Corpuscular Hemoglobin 27.3 pg (27.0-31.0); Mean Corpuscular Volume 86.6 fL (78.0-98.0); Platelet Count 240 10x3/uL (130-400); Red Blood Cell (RBC) Count 3.52 mill/uL (4.20-5.40); White Blood Cell (WBC) Count 7.80 10x3/uL (4.8-10.8)
[2025-09-13 12:37] LABS: ALT (SGPT) 10 U/L (Less than 34); AST (SGOT) 14 U/L (11-34); Albumin 2.7 g/dL (3.1-4.5); Alkaline Phosphatase 81 U/L (40-110); Anion Gap 12 mmol/L (10-20); BUN (Urea Nitrogen) 7 mg/dL (7.0-18.7); Bilirubin, Total 0.2 mg/dL (0.3-1.2); Calc. Creatinine Clearance 0 mL/min (70-130); Calcium 9.0 mg/dL (7.8-10.44); Carbon Dioxide 21 mmol/L (22-29); Chloride 106 mmol/L (98-107); Globulin 4.0 g/dL (2.4-3.5); Glucose 80 mg/dL (70-105); Potassium 3.6 mmol/L (3.5-5.1); Sodium 135 mmol/L (136-145)
[2025-09-13 12:40] LABS: CAUTI Indications for Culture Dysuria,urgency,freq; Glucose, Urine (Dipstick) Normal (Negative); Leukocyte Negative Leu/uL (Negative); Protein, Urine (Dipstick) Negative (Neg-Trace); RBC/HPF 0-3 HPF (0-3); Specific Gravity, Urine 1.024 (1.002-1.036); WBC/HPF 0-3 HPF (0-3)
[2025-09-13 12:41] LABS: Bacteria/HPF 1+ HPF (None Seen)
[2025-09-13 12:42] LABS: Urine Culture Reflex No No
== END 2025-09-13 16:57 ==
LOC: ERS 11:18
DX: O9A.212 Injury, poisoning and certain other consequences of external causes complicating pregnancy, second trimester (principal); R10.9 Unspecified abdominal pain; W22.01XA Walked into wall, initial encounter; Z3A.27 27 weeks gestation of pregnancy
CPT/HCPCS: 76856; 80053; 81001; 85025